=== PATIENT | female | born 2000 | race African-American/Black ===

== ENCOUNTER 2024-04-28 09:23 | Emergency (ER) | payer BC, SELFPAY ==
--- NOTE | ~2024-04-28 | XR_ITS ---
EXAMINATION: XR chest 2V 04/28/2024 09:52 INDICATION: Cough and congestion PROCEDURE: 2 view chest COMPARISON: No prior studies for comparison. FINDINGS: The lungs are clear. The cardiomediastinal silhouette is within normal limits. There are no pleural effusions. There is no pneumothorax suspected. IMPRESSION: 1: NO ACUTE CARDIOPULMONARY DISEASE. Reviewed, dictated and finalized at location A. TO BUCKER
[2024-04-28 09:24] VITALS: BP 132/77; PULSE 92; RESP 20; TEMP 36.9; O2SAT 100
[2024-04-28 10:32] VITALS: BP 118/73; PULSE 78; RESP 18; O2SAT 99
--- NOTE | 2024-04-28 10:39 | ED.URI ---
HPI - URI/Sore Throat General Chief Complaint: Upper Respiratory Infection Stated Complaint: COUGH,CONGESTION,HEMOPTYSIS Time Seen by Provider: 04/28/24 09:56 Source: patient Mode of arrival: ambulatory Limitations: no limitations History of Present Illness HPI Narrative: Patient is a 24-year-old female who presents the ED with report of URI symptoms. Patient reports she has had URI sx's since Friday with cough, congestion, sore throat. Has been bring up some phlegm with the cough. States today she woke up and had some blood streaks in her sputum and nasal drainage which prompted her presentation. Denies fevers. Denies significant SOB. 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 Related Data Allergies Allergy/AdvReac Type Severity Reaction Status Date / Time No Known Allergies Allergy Verified 04/28/24 09:24 Review of Systems Review of Systems: All systems reviewed & are unremarkable except as noted in HPI. All systems reviewed & are unremarkable except as noted in HPI and below Exam Narrative: GENERAL: Well appearing, obese with BMI of 32.2, non-toxic, in no acute distress. HEAD: Normocephalic, atraumatic. ENT: Mild posterior pharynx erythema. No tonsillar hypertrophy or exudate. Uvula midline. Nasal mucosa does appear dry. No active bleeding. No septal hematoma. RESPIRATORY: Airway patent, respirations nonlabored. Clear to auscultation bilaterally, no rales, rhonchi, wheezing. Frequent coughing on exam. Nasal quality to voice. No focal lung sounds heard with auscultation. CARDIOVASCULAR: Regular rate and rhythm without murmurs, rubs, or gallops. MUSCULOSKELETAL: Moves all extremities. No gross deformities. SKIN: Warm, dry, normal color. NEURO: A&O X3. Speech clear. PSYCHIATRIC: Appropriate mood and affect. Normal interaction. Course Vital Signs Vital signs: Vital Signs Temperature 98.4 F 04/28/24 09:24 Pulse Rate 92 04/28/24 09:24 Respiratory Rate 20 04/28/24 09:24 Blood Pressure 132/77 04/28/24 09:24 Pulse Oximetry 100 04/28/24 09:24 Oxygen Delivery Room Air 04/28/24 09:24 Temperature 98.4 F 04/28/24 09:24 Pulse Rate 80 04/28/24 12:05 Respiratory Rate 16 04/28/24 12:05 Blood Pressure 128/67 04/28/24 12:05 Pulse Oximetry 99 04/28/24 12:05 Oxygen Delivery Room Air 04/28/24 10:26 MDM - URI/Sore Throat MDM Narrative Medical decision making narrative: Patient presented to ED with several day history of URI symptoms. Vital signs are stable upon arrival. Patient is in no acute distress. Chest x-ray is clear. Testing for influenza, RSV, COVID negative. Strep testing also negative. Discussed high likelihood of viral URI, management of such. Discussed humidifier, Aquaphor/Vaseline to nasal cavities to prevent drying out. Discussed further management of symptom relief at home. Will prescribe Tessalon Perles. Given return precautions. She agrees with plan. Discharged in stable condition. Medical Records Attestation: I reviewed the patient's medical records. Lab Data Attestation: I reviewed the patient's lab results. Labs: Lab Results 04/28/24 04/28/24 Range/Units 10:07 11:04 Influenza A (RT-PCR) Negative (Negative) Influenza B (RT-PCR) Negative (Negative) RSV (RT-PCR) Negative (Negative) SARS-CoV-2 RNA (RT-PCR) Negative (Negative) Group A Strep (PCR) Not detected (Negative) Imaging Data Attestation: I personally reviewed and interpreted this imaging study as follows: Radiologist's impression: ITS Impressions Chest X-Ray 04/28/24 09:53 IMPRESSION: 1: NO ACUTE CARDIOPULMONARY DISEASE. Discharge Plan Discharge Clinical Impression: Acute viral syndrome Upper respiratory infection Qualifiers: URI type: unspecified URI Qualified Code(s): J06.9 - Acute upper respiratory infection, unspecified Patient Disposition: Home, Self-Care Condition: Stable Instructions: Antibiotic Form, Viral Syndrome (ED), Cold Symptoms (ED), Acute Cough (ED) Additional Instructions: Your testing for influenza, RSV, COVID, strep were negative. You likely have a viral upper respiratory infection that will resolve on its own. Recommend using humidifier at night to prevent nose from drying out. You can apply aquaphor or vaseline to nose at night, as well. Continue nasal sprays. Stay well-hydrated at home. Recommend electrolyte rich fluids, Gatorade, Pedialyte, body armor. Utilize Tessalon Perles as needed for cough. Utilize Tylenol and Ibuprofen for discomfort and/or fevers. Recommend [id number] cough and cold medicines for symptom relief, Delsym, Mucinex, DayQuil, NyQuil, Sudafed, Robitussin, TheraFlu. Follow with primary care doctor for further evaluation if needed. Return to the ED if you experience severe bleeding, chest pain, difficulty breathing, unable to keep down food or drink, severe pain, or any other symptoms of concern. Patient Language: Scottish Prescriptions: New benzonatate 200 mg capsule 200 mg PO TID PRN (Reason: cough) Qty: 15 0RF Follow-up/Referrals: Alf,Mary Martinez DO [Primary Care Provider] - Time of Disposition: 11:48
[2024-04-28 10:51] LABS: Influenza A QL RT-PCR Negative (Negative); Influenza B QL RT-PCR Negative (Negative); RSV RNA, RT-PCR Negative (Negative); SARS-CoV-2 RNA PCR Negative (Negative)
[2024-04-28 11:37] LABS: Strep Group A RT-PCR NOT DETECTED (Negative)
[2024-04-28 12:05] VITALS: BP 128/67; PULSE 80; RESP 16; O2SAT 99
--- OUTSIDE RECORDS SUMMARY | 2024-04-29 23:06 | XMS_ITS | Referral Summary ---
Author Organization [address] Address [address] [facility] [address] [place] [address] Care Team Providers Care Route Sales Representative Name Role Phone Mary Milner DO Primary Care Provider [phone]- [phone] Encounters Date Type Department Care Team Description 04/22/2024 Telephone [facility] Family Medicine [address] [phone] Saba Reis MA 03/26/2024 Orders Only [facility] [address] [place] [phone] Mary Milner DO Asymptomatic microscopic hematuria (Primary Dx) 03/25/2024 Telephone [facility] [address] [place] [phone] Mary Milner DO 03/24/2024 1:45 PM ZIGZAG APPLIQUER Lab [facility] [address] [place] [address] Need for hepatitis B screening test; Need for hepatitis C screening test; Annual physical exam; Screening for blood or protein in urine; Mild episode of recurrent major depressive disorder (HCC); Generalized anxiety disorder; Screening for thyroid disorder; Encounter for lipid screening for cardiovascular disease; Encounter for screening examination for impaired glucose regulation and diabetes mellitus; Encounter for screening for other digestive system disorders; Screening for deficiency anemia 03/24/2024 1:00 PM ZIGZAG APPLIQUER Office Visit [facility] Family Medicine [facility] [address] [place] [phone] Mary Milner DO Annual physical exam (Primary Dx); Mild episode of recurrent major depressive disorder (HCC); Generalized anxiety disorder; Screening for deficiency anemia; Encounter for screening for other digestive system disorders; Encounter for screening examination for impaired glucose regulation and diabetes mellitus; Encounter for lipid screening for cardiovascular disease; Screening for thyroid disorder; Screening for blood or protein in urine; Need for hepatitis C screening test; Need for hepatitis B screening test from Last 3 Months Allergies No known active allergies Medications sertraline (ZOLOFT) 100 mg tabletIndication s:Anxiety with Depression Take 1 tablet (100 mg total) by mouth daily 90 tablet 1 03/24/2024 Active semaglutide (Wegovy) 0.25 mg/0.5 mL auto-injectorInd ications:Weight Loss Management for Obese Patient (BMI >= 30) Start: 0.25 mg SC qwk x 4 wk, then 0.5 mg SC qwk 2 mL 1 03/25/2024 Active Active Problems Problem Noted Date Diagnosed Date Class 1 obesity due to exces s calories without serious comorbidity with body mass index (BMI) of 32.0 to 32.9 in adult 03/25/2024 Mild episode of recurrent major depressive disor robles 03/24/2024 Assessment & Plan (03/24/2024 1:52 PM ZIGZAG APPLIQUER): Stable. Cont. Current prescription medications. Generalized anxiety disorder 03/24/2024 Assessment & Plan (03/24/2024 1:54 PM ZIGZAG APPLIQUER): Stable. Cont. Current prescription medications. Immunizations Name Administration Dates Next Due Influenza, Quadrivalent, Spl it, Preservative Free, Intramuscular 12/22/2021,01/18/2021,03/03/2019 Influenza, Unspecified 01/06/2024,2022(Deferred: Patient Refused) Meningococcal MCV4P (Menactra) 10/13/2023,2018 Tdap 10/13/2023,06/25/2019 Social History Tobacco Use Types Packs/Day Years Used Date Smoking Tobacco: Never Smokeless Tobacco: Never Tobacco Cessation:Counseling Given: Not Answered AUDIT-C Answer Date Recorded Q1: How often do you have a drink containing alc ohol? Monthly or less 03/24/2024 Q2: How many drinks containi ng alcohol do you have on a typical day when you are drinking? 1 or 2 03/24/2024 Q3: How often do you have si x or more drinks on one occasion? Less than monthly 03/24/2024 PHQ-2 Answer Date Recorded PHQ-2 Total Score (If total score is 3 or more points, staff should administer the PHQ-9) 0 03/24/2024 Comments Unknown Sex and Gender Information Value Date Recorded Sex Assigned at Not on file Legal Sex Female 1:52 PM ZIGZAG APPLIQUER Gender Identity Not on file Sexual Orientation Not on file Last Filed Vital Signs Vital Sign Reading Time Taken Comments Blood Pressure 100/62 03/24/2024 1:10 PM ZIGZAG APPLIQUER Pulse 82 03/24/2024 1:10 PM ZIGZAG APPLIQUER Temperature - - Respiratory Rate 14 03/24/2024 1:10 PM ZIGZAG APPLIQUER Oxygen Saturation 98% 03/24/2024 1:10 PM ZIGZAG APPLIQUER Inhaled Oxygen Concentration - - Weight 85.7 kg (189 lb) 03/24/2024 1:10 PM ZIGZAG APPLIQUER Height 162.6 cm (5' 4 ) 03/24/2024 1:10 PM ZIGZAG APPLIQUER Body Mass Index 32.44 03/24/2024 1:10 PM ZIGZAG APPLIQUER Plan of Treatment Not on file Procedures Procedure Name Priority Date/Time Associated Diagnosis Comments EGFR Routine 03/24/2024 1:56 PM ZIGZAG APPLIQUER Annual physical exam Encounter for screening for other digestive system disorders DIFFERENTIAL AUTO Routine 03/24/2024 1:5 6 PM ZIGZAG APPLIQUER Annual physical exam Screening for deficiency anemia CBC WITH AUTO DIFFERENTIAL Routine 03/24/2024 1:56 PM ZIGZAG APPLIQUER Annual physical exam Screening for deficiency anemia COMPREHENSIVE METABOLIC PANEL Routine 03/24/2024 1:56 PM ZIGZAG APPLIQUER Annual physical exam Encounter for screening for other digestive system disorders HEMOGLOBIN A1C Routine 03/24/2024 1:56 PM ZIGZAG APPLIQUER Annual physical exam Encounter for screening examination for impaired glucose regulation and diabetes mellitus LIPID PANEL Routine 03/24/2024 1:56 PM ZIGZAG APPLIQUER Annual physical exam Encounter for lipid screening for cardiovascular disease THYROID FUNCTION CASCADE Routine 03/24/2024 1:56 PM ZIGZAG APPLIQUER Annual physical exam Mild episode of recurrent major depressive disorder (HCC) Generalized anxiety disorder Screening for thyroid disorder HEPATITIS C ANTIBODY Routine 03/24/2024 1:56 PM ZIGZAG APPLIQUER Need for hepatitis C screening test HEPATITIS B SURFACE ANTIGEN Routine 03/24/2024 1:56 PM ZIGZAG APPLIQUER Need for hepatitis B screening test HEPATITIS B SURFACE ANTIBODY (IMMUNE STATUS) Routine 03/24/2024 1:56 PM ZIGZAG APPLIQUER Need for hepatitis B screening test HEPATITIS B CORE ANTIBODY, TOTAL Routine 03/24/2024 1:56 PM ZIGZAG APPLIQUER Need for hepatitis B screening test URINALYSIS, MICROSCOPIC ONLY Routine 03/24/2024 1:52 PM ZIGZAG APPLIQUER Annual physical exam Screening for blood or protein in urine URINALYSIS AND REFLEX TO MICROSCOPIC AND CULTURE Routine 03/24/2024 1:52 PM ZIGZAG APPLIQUER Annual physical exam Screening for blood or protein in urine from Last 3 Months Results * eGFR (03/24/2024 1:56 PM ZIGZAG APPLIQUER) eGFR >90 >=60 mL/min/1. 73 m2 Comment: Interpretive Data Reference Interval Normal ?>/= 90 mL/min/1.73m2 Mildly decreased* ? 60 - 89 mL/min/1.73m2 Mildly to moderately decreased ?45 - 59 mL/min/1.73m2 Moderately to severely decreased ??30 - 44 mL/min/1.73m2 Severely decreased ?15 - 29 mL/min/1.73m2 Kidney Failure ?< 15 ??mL/min/1.73m2 *Relative to young adult level Estimated glomerular filtration rate is determined by the 2020 CKD-EPI equation recommended by the National Kidney Foundation (A Unifying Approach to GFR Estimation: Recommendations of the NKF-ASK Task Force on Reassessing the Inclusion of Race in Diagnosing Kidney Disease, JASN 2020). The CKD-EPI equation should not be used for patients with unstable renal function and has not been validated in children and those over 70. Current interpretive data was last reviewed 2021. Blood 03/24/2024 1:56 PM ZIGZAG APPLIQUER 03/24/2024 2:11 PM ZIGZAG APPLIQUER us Mary Milner DO LAB BLOOD ORDERABLES Final Result [facility] [address] [facility] Department [place] [address] * Differential, auto (03/24/2024 1:56 PM ZIGZAG APPLIQUER) Neutrophil abs 5.5 1.5 - 6.5 K/cumm Imm gran abs 0.0 0.0 - 0.1 K/cumm [facility] Lymphocyte abs 2.1 0.8 - 3.3 K/cumm [facility] Monocyte abs 0.6 0.2 - 0.8 K/cumm [facility] Eosinophil abs 0.1 0.0 - 0.5 K/cumm [facility] Basophil abs 0.0 0.0 - 0.1 K/cumm [facility] Neutrophil pct 66.5 % [facility] Comment: Interpretive Data Percent cell count reference ranges are not reported, since discordance with absolute values may lead to misinterpretation of CBC data. Current Interpretive Data was last revised on 2017. Imm gran pct 0.2 % [facility] Comment: Interpretive Data Percent cell count reference ranges are not reported, since discordance with absolute values may lead to misinterpretation of CBC data. Current Interpretive Data was last revised on 2017. Lymphocyte pct 25.3 % [facility] Comment: Interpretive Data Percent cell count reference ranges are not reported, since discordance with absolute values may lead to misinterpretation of CBC data. Current Interpretive Data was last revised on 2017. Monocyte pct 6.8 % [facility] Comment: Interpretive Data Percent cell count reference ranges are not reported, since discordance with absolute values may lead to misinterpretation of CBC data. Current Interpretive Data was last revised on 2017. Eosinophil pct 0.8 % [facility] Comment: Interpretive Data Percent cell count reference ranges are not reported, since discordance with absolute values may lead to misinterpretation of CBC data. Current Interpretive Data was last revised on 2017. Basophil pct 0.4 % [facility] Comment: Interpretive Data Percent cell count reference ranges are not reported, since discordance with absolute values may lead to misinterpretation of CBC data. Current Interpretive Data was last revised on 2017. Blood 03/24/2024 1:56 PM ZIGZAG APPLIQUER 03/24/2024 2:11 PM ZIGZAG APPLIQUER Mary Perez [facility] LAB BLOOD ORDERABLES Final Result Performing Organization Address [facility] de Phone Number [address] [employer] [place] [place] [address] * Thyroid Function Peterman (03/24/2024 1:56 PM ZIGZAG APPLIQUER) Pathologist [facility] TSH 1.88 0.30 - 4.20 mcIUnit/mL Blood 03/24/2024 1:56 PM ZIGZAG APPLIQUER 03/24/2024 2:11 PM ZIGZAG APPLIQUER [facility] LAB BLOOD ORDERABLES Final Result Performing Organization Address [facility] Co de Phone Number [address] [employer] [place] [place] [address] * (ABNORMAL) CBC with auto differential (03/24/2024 1:56 PM ZIGZAG APPLIQUER) Pathologist [facility] WBC 8.3 3.8 - 9.9 K/cumm Hgb 11.4(L) 11.9 - 15.5 g/dL [facility] Hct 36.3 35.6 - 45.5 % [facility] Plt 414(H) 150 - 400 K/cumm [facility] MPV 10.0 9.1 - 12.3 fL [facility] RBC 4.33 3.90 - 5.20 M/cumm [facility] MCV 83.8 81.3 - 96.4 fL [facility] MCH 26.3(L) 27.1 - 33.3 pg [facility] MCHC 31.4(L) 32.3 - 35.7 g/dL [facility] RDW CV 14.0 11.1 - 14.9 % [facility] RDW SD 42.7 35.7 - 48.1 fL [facility] NRBC abs 0.00 0.00 - 0.01 K/cumm [facility] Blood 03/24/2024 1:56 PM ZIGZAG APPLIQUER 03/24/2024 2:11 PM ZIGZAG APPLIQUER us Mary Milner DO LAB BLOOD ORDERABLES Final Result Performing Organization Address City/State/[facility] Co de Phone Number [place] [phone] [facility] Department [place] [address] * Hepatitis C antibody Blood (03/24/2024 1:56 PM ZIGZAG APPLIQUER) Hep C Ab Nonreactive Nonreactive Comment: Antibodies to HCV not detected. Does NOT exclude the possibility of recent exposure to HCV. Current interpretive data was last revised on 21 Interpretive Data Nonreactive: Antibodies to HCV not detected. Does NOT exclude the possibility of recent exposure to HCV. Equivocal: Equivocal for HCV antibodies. Supplemental molecular testing will be automatically performed to determine infection status in accordance with current CDC screening recommendations. ?? Reactive: Positive for HCV antibodies. ??This may represent current or past HCV infection. Supplemental molecular testing will be automatically performed to determine ??current infection status in accordance with current CDC screening recommendations. Interpretive data was last revised on 2019. Blood 03/24/2024 1:56 PM ZIGZAG APPLIQUER 03/24/2024 2:11 PM ZIGZAG APPLIQUER us Mary Milner DO LAB MICROBIOLOGY - GENERAL ORDERABLES Final Result Performing Organization Address City/[facility] Co de Phone Number [address] [employer] [place] [address] * Hepatitis B core antibody, total Blood (03/24/2024 1:56 PM ZIGZAG APPLIQUER) Pathologist [facility] Hep B core IgG/IgM Nonreactive Nonreactive Comment:Testing performed by : [facility], [address] [place]., [address] Blood 03/24/2024 1:56 PM ZIGZAG APPLIQUER 03/24/2024 5:54 PM ZIGZAG APPLIQUER Mary Milner LAB MICROBIOLOGY - GENERAL ORDERABLES Final Result Performing Organization Address [facility] de Phone Number [address] [address] * Hepatitis B surface antibody (immune status) Blood (03/24/2024 1:56 PM ZIGZAG APPLIQUER) [facility] HBsAb (immune status) Nonreactive Comment: Interpretive Data Nonreactive: This result is consistent with a lack of immunity to Hepatitis B Virus when used in the setting of routine screening. Equivocal: The immune status of the individual should be further assessed, if appropriate, after consideration of clinical status, risk factors, and additional diagnostic information. Reactive: This result is consistent with immunity to Hepatitis B Virus when used in the setting of routine screening. Current interpretive data was last revised on 19. Blood 03/24/2024 1:56 PM ZIGZAG APPLIQUER 03/24/2024 2:11 PM ZIGZAG APPLIQUER us Mary Milner DO LAB MICROBIOLOGY - GENERAL ORDERABLES Final Result Performing Organization Address [facility] Co de Phone Number [address] [employer] [place] [address] * Hepatitis B Surface Antigen Blood (03/24/2024 1:56 PM ZIGZAG APPLIQUER) Pathologist [facility] HepBsAg Nonreactive Nonreactive Blood 03/24/2024 1:56 PM ZIGZAG APPLIQUER 03/24/2024 2:11 PM ZIGZAG APPLIQUER Mary Milner DO LAB MICROBIOLOGY - GENERAL ORDERABLES Final Result Performing Organization Address [facility] Phone Number [address] [address] * (ABNORMAL) Hemoglobin A1c (03/24/2024 1:56 PM ZIGZAG APPLIQUER) Pathologist [facility] Hgb A1C 5.8(H) 4.0 - 5.6 % Estimated Average Glucose 120 mg/dL [facility] Comment: The ADA recommends reporting an estimated Average Glucose (eAG) with all Hemoglobin A1c results using the equation derived from a study of 507 normal and diabetic adults. ??Minority populations were underrepresented and children were not included. ?? (Diabetes Care 31:4315-4974, 2008). ??The eAG is not equivalent to a fasting glucose. Blood 03/24/2024 1:56 PM ZIGZAG APPLIQUER 03/24/2024 2:11 PM ZIGZAG APPLIQUER Mary Milner DO LAB BLOOD ORDERABLES Final Result Performing Organization Address [facility] de Phone Number [address] [address] * (ABNORMAL) Lipid panel (03/24/2024 1:56 PM ZIGZAG APPLIQUER) [facility] Cholesterol 201(H) 30 - 199 mg/dL Comment: Interpretive Data Ages < or = 19 years ??Acceptable: ? <170 mg/dL ??Borderline high: ??170-199 mg/dL ??High: ? >or= 200 mg/dL Ages > or = 20 years ??Desirable: ?<200 mg/dL ??Borderline high: ??200-239 mg/dL ??High: ? >or= 240 mg/dL Literature References: 1. Expert Panel on Integrated Guidelines for Cardiovascular Health and Risk Reduction in Children and Adolescents. Pediatrics 2011;128:S213 2. NCEP Expert Panel. Circulation 2004;110:227 Current Interpretive Data was last revised on 2017. Triglycerides 159(H) <=149 mg/dL [facility] Comment: Interpretive Data Ages < or = 9 years ??Acceptable: ? <75 mg/dL ??Borderline high: ??75-99 mg/dL ??High: ? >or= 100 mg/dL Ages 10 to 20 years ??Acceptable: ? <90 mg/dL ??Borderline high: ??90-129 mg/dL ??High: ? >or= 130 mg/dL Ages > or = 20 years ??Desirable: ?<150 mg/dL ??Borderline high: ??150-199 mg/dL ??High: ? 200-499 mg/dL ?Very high: ?? >or= 499 mg/dL Literature References: 1. Expert Panel on Integrated Guidelines for Cardiovascular Health and Risk Reduction in Children and Adolescents. Pediatrics 2011;128:S213 2. NCEP Expert Panel. Circulation 2004;110:227 Current Interpretive Data was last revised on 2017. HDL 53 >=40 mg/dL [facility] Comment: Interpretive Data Ages < or = 19 years ??Acceptable: ? >45 mg/dL ??Borderline low: ?? 40-45 mg/dL ??Low: ? <40 mg/dL Ages > or = 20 years ??Desirable: ?>or= 60 mg/dL ??Low: ? <40 mg/dL Literature References: 1. Expert Panel on Integrated Guidelines for Cardiovascular Health and Risk Reduction in Children and Adolescents. Pediatrics 2011;128:S213 2. NCEP Expert Panel. Circulation 2004;110:227 Current Interpretive Data was last revised on 2017. LDL, calculated 120 <=129 mg/dL [facility] Comment: Interpretive Data Ages < or = 19 years ??Acceptable: ? <110 mg/dL ??Borderline high: ??110-129 mg/dL ??High: ?>or= 130 mg/dL Ages > or = 20 years ??Optimal: ? <100 mg/dL ??Near optimal: ?100-129 mg/dL ??Borderline high: ?? 130-159 mg/dL ??High: ?>160 mg/dL Calculated using the Say LDL-C estimating equation. This equation was implemented on 2023. Prior to this date LDL-C was estimated using the Friedewald equation. Literature References: 1. Expert Panel on Integrated Guidelines for Cardiovascular Health and Risk Reduction in Children and Adolescents. Pediatrics 2011;128:S213 2. NCEP Expert Panel. Circulation 2004;110:227 3. Say Dorado et al. ISH Cardiol. 2020 August 05;5(5):540-548. doi: 10.1001/jamacardio.2020.0013 Current Interpretive Data was last revised on 2023. Non-HDL Cholesterol 148 mg/dL [facility] Comment: Interpretive Data Ages < or = 19 years ??Acceptable: ?<120 mg/dL ??Borderline high: ??120-144 mg/dL ??High: ?>145 mg/dL Ages > or = 20 years ??When triglycerides are >200 mg/dL, Non-HDL cholesterol is a secondary target of ? therapy with treatment goals that are 30 mg/dL greater than the LDL cholesterol target. ? Literature References: 1. Expert Panel on Integrated Guidelines for Cardiovascular Health and Risk Reduction in Children and Adolescents. Pediatrics 2011;128:S213 2. NCEP Expert Panel. Circulation 2004;110:227 Current Interpretive Data was last revised on 2017. Chol/HDL ratio 4 [facility] Blood 03/24/2024 1:56 PM ZIGZAG APPLIQUER 03/24/2024 2:11 PM ZIGZAG APPLIQUER us Mary Milner DO LAB BLOOD ORDERABLES Final Result [facility] [address] [facility] Department [place] [address] * (ABNORMAL) Comprehensive metabolic panel (03/24/2024 1:56 PM ZIGZAG APPLIQUER) Sodium 137 135 - 145 mmol/L Potassium, pl 3.8 3.3 - 4.9 mmol/L [facility] Chloride 102 97 - 110 mmol/L [facility] CO2 25 22 - 32 mmol/L [facility] Anion gap 10 2 - 15 mmol/L [facility] BUN 8 6 - 25 mg/dL [facility] Creatinine 0.59(L) 0.60 - 1.10 mg/dL [facility] Glucose 97 70 - 199 mg/dL [facility] Comment: Interpretive Data Fasting glucose >/= 126 mg/dl is diagnostic for diabetes. ?? Fasting is defined as no caloric intake for at least 8 hours. Fasting glucose between 100 mg/dl to 125 mg/dl is diagnostic of prediabetes. In a patient with classic symptoms of hyperglycemia or hyperglycemic crisis, a random glucose >/= 200 mg/dl is diagnostic for diabetes. In the absence of unequivocal hyperglycemia, results should be confirmed by repeat testing. The classification and Diagnosis of Diabetes Diabetes Care 2021; 46: S19-S40. Current interpretive data was last revised 2022. Calcium 9.5 8.5 - 10.3 mg/dL [facility] Bilirubin, total 0.2 0.1 - 1.2 mg/dL [facility] Protein, pl 8.0 6.5 - 8.5 g/dL [facility] Albumin 4.3 3.5 - 5.0 g/dL [facility] Alk phos 84 40 - 130 Units/L [facility] ALT 6(L) 7 - 45 Units/L [facility] AST 16 10 - 45 Units/L [facility] Blood 03/24/2024 1:56 PM ZIGZAG APPLIQUER 03/24/2024 2:11 PM ZIGZAG APPLIQUER us Mary Milner DO LAB BLOOD ORDERABLES Final Result [facility] [address] [facility] Department [place] [address] * (ABNORMAL) Urinalysis reflex to microscopic and culture Urine, clean voided (03/24/2024 1:52 PM ZIGZAG APPLIQUER) Color, ur Yellow Yellow Clarity, ur Clear Clear [facility] Specific gravity, ur 1.020 1.003 - 1.030 [facility] pH, urine 7.0 [facility] Comment: Interpretive Data ? Urine pH is affected by diet, medications, systemic acid-base disturbances, and renal tubular function. ??pH may affect urinary stone formation. ??For example, urine pH below 6.0 may help reduce the tendency for calcium phosphate stones and pH greater than 6.0 may reduce the tendency for uric acid stone formation. Source: [facility] Current Interpretive Data was last revised on 2017 Protein, ur ql Negative Negative [facility] Glucose, ur ql Negative Negative [facility] Ketones, ur Negative Negative [facility] Bilirubin, ur Negative Negative [facility] Blood, ur 1+(A) Negative [facility] Urobilinogen, ur <2.0 <2.0 mg/dL [facility] Nitrite, ur Negative Negative [facility] Leukocyte esterase, ur Negative Negative [facility] UA reflex comment Reflex to microscopic UA will be performed. [facility] Urine, clean voided 03/24/2024 1:52 PM ZIGZAG APPLIQUER 03/24/2024 2:09 PM ZIGZAG APPLIQUER Narrative [facility] - 03/24/2024 2:18 PM ZIGZAG APPLIQUER Urine Collection Method->Clean Catch us Mary Milner DO LAB MICROBIOLOGY - GENERAL ORDERABLES Final Result [facility] [address] [facility] Department [place] [address] * (ABNORMAL) Urinalysis, microscopic only (03/24/2024 1:52 PM ZIGZAG APPLIQUER) WBC, ur 0-5 0 - 5 /HPF RBC, ur 11-20(A) 0 - 2 /HPF [facility] Epithelial cells, squamous, ur 1-5 0 - 5 /HPF [facility] Mucous, ur Present(A) [facility] Culture Reflex Comment Reflex conditions for urine culture (WBC >10) not met. [facility] Urine, clean voided 03/24/2024 1:52 PM ZIGZAG APPLIQUER 03/24/2024 2:12 PM ZIGZAG APPLIQUER us Mary Milner DO LAB URINE ORDERABLES Final Result [facility] [address] [facility] [place] [address] from Last 3 Months Insurance [employer] Care Teams Route Sales Representative Relationship Specialty Start Date End Date Mary Milner DO [address] [facility] [address] [place] [address] PCP - General Family Medicine 03/24/24
--- OUTSIDE RECORDS SUMMARY | 2024-04-29 23:06 | XMS_ITS | Clinical Summary ---
Author Organization [facility] [place] [address] [facility] 5th Floor [address] Care Team Providers Care Scrubbing Machine Operator Name Role Phone Mary Milner Primary Care Provider [phone]- [phone] Allergies No known active allergies Medications sertraline [...] 03/24/2024 Assessment & Plan (03/24/2024 1:52 PM COIN COUNTER AND WRAPPER): Stable. Cont. Current prescription medications. Generalized anxiety disorder 03/24/2024 Assessment & Plan (03/24/2024 1:54 PM COIN COUNTER AND WRAPPER): Stable. Cont. Current prescription medications. Encounters Date Type Department Care Team Description 04/22/2024 Telephone [facility] Family Medicine [address] [place] [address] [place] [phone] Saba Reis MA 03/26/2024 Orders Only [facility] [place] [address] [facility] [address] [place] [address] Mary Milner DO Asymptomatic microscopic hematuria (Primary Dx) 03/25/2024 Telephone [facility] [address] [facility] [address] [place] [address] Mary Milner DO 03/24/2024 1:45 PM COIN COUNTER AND WRAPPER Lab [facility] [address] [place] [address] Need for hepatitis B screening test; Need [...] Screening for deficiency anemia 03/24/2024 1:00 PM COIN COUNTER AND WRAPPER Office Visit [facility] [place] [address] [facility] [address] [place] [address] Mary Milner DO Annual physical exam (Primary [...] B screening test from Last 3 Months Immunizations Name Administration Dates Next Due Influenza, Quadrivalent, Spl it, Preservative Free, Intramuscular 12/22/2021,01/18/2021,03/03/2019 Influenza, Unspecified 01/06/2024,2022(Deferred: Patient Refused) Meningococcal MCV4P (Menactra) 10/13/2023,2018 Tdap 10/13/2023,06/25/2019 Family History Medical History Relation Name Comments Hypertension Father Relation Name Status Comments Father Alive Mother Alive Social History Tobacco Use Types Packs/Day Years [...] on file Legal Sex Female 1:52 PM COIN COUNTER AND WRAPPER Gender Identity Not on file Sexual Orientation Not on file Obstetrics History Last Filed Vital Signs Vital Sign Reading Time Taken Comments Blood Pressure 100/62 03/24/2024 1:10 PM COIN COUNTER AND WRAPPER Pulse 82 03/24/2024 1:10 PM COIN COUNTER AND WRAPPER Temperature - - Respiratory Rate 14 03/24/2024 1:10 PM COIN COUNTER AND WRAPPER Oxygen Saturation 98% 03/24/2024 1:10 PM COIN COUNTER AND WRAPPER Inhaled Oxygen Concentration - - Weight 85.7 kg (189 lb) 03/24/2024 1:10 PM COIN COUNTER AND WRAPPER Height 162.6 cm (5' 4 ) 03/24/2024 1:10 PM COIN COUNTER AND WRAPPER Body Mass Index 32.44 03/24/2024 1:10 PM COIN COUNTER AND WRAPPER Plan of Treatment Health Maintenance Due Date Last Done Comments Cervical Cancer Screening 2002 Covid-19 Vaccine ( season) 2025 12/22/2021, 08/15/2020, 07/25/2020 Postponed from 12/07/2023 (Patient declined, but will receive in the future) Depression Screening 03/24/2025 03/24/2024 Regular Well Visit/Exam 18-64 03/24/2025 03/24/2024 DTaP/Tdap/Td Vaccine (3 - Td or Tdap) 10/12/2033 10/13/2023, 06/25/2019 Influenza Vaccine Completed 01/06/2024, , 01/18/2021, Additional history exists Hepatitis B Screening Completed 03/24/2024 Hepatitis C Screening Completed 03/24/2024 HPV Vaccines Discontinued Meningococcal B Vaccine Discontinued Pneumococcal vaccine <65 Aged Out No longer eligible based on patient's age to complete this topic Varicella Vaccines Discontinued Procedures Procedure Name Priority Date/Time Associated Diagnosis Comments EGFR Routine 03/24/2024 1:56 PM COIN COUNTER AND WRAPPER Annual physical exam Encounter for screening for other digestive system disorders DIFFERENTIAL AUTO Routine 03/24/2024 1:5 6 PM COIN COUNTER AND WRAPPER Annual physical exam Screening for deficiency anemia CBC WITH AUTO DIFFERENTIAL Routine 03/24/2024 1:56 PM COIN COUNTER AND WRAPPER Annual physical exam Screening for deficiency anemia COMPREHENSIVE METABOLIC PANEL Routine 03/24/2024 1:56 PM COIN COUNTER AND WRAPPER Annual physical exam Encounter for screening for other digestive system disorders HEMOGLOBIN A1C Routine 03/24/2024 1:56 PM COIN COUNTER AND WRAPPER Annual physical exam Encounter for screening examination for impaired glucose regulation and diabetes mellitus LIPID PANEL Routine 03/24/2024 1:56 PM COIN COUNTER AND WRAPPER Annual physical exam Encounter for lipid screening for cardiovascular disease THYROID FUNCTION CASCADE Routine 03/24/2024 1:56 PM COIN COUNTER AND WRAPPER Annual physical exam Mild episode of recurrent major depressive disorder (HCC) Generalized anxiety disorder Screening for thyroid disorder HEPATITIS C ANTIBODY Routine 03/24/2024 1:56 PM COIN COUNTER AND WRAPPER Need for hepatitis C screening test HEPATITIS B SURFACE ANTIGEN Routine 03/24/2024 1:56 PM COIN COUNTER AND WRAPPER Need for hepatitis B screening test HEPATITIS B SURFACE ANTIBODY (IMMUNE STATUS) Routine 03/24/2024 1:56 PM COIN COUNTER AND WRAPPER Need for hepatitis B screening test HEPATITIS B CORE ANTIBODY, TOTAL Routine 03/24/2024 1:56 PM COIN COUNTER AND WRAPPER Need for hepatitis B screening test URINALYSIS, MICROSCOPIC ONLY Routine 03/24/2024 1:52 PM COIN COUNTER AND WRAPPER Annual physical exam Screening for blood or protein in urine URINALYSIS AND REFLEX TO MICROSCOPIC AND CULTURE Routine 03/24/2024 1:52 PM COIN COUNTER AND WRAPPER Annual physical exam Screening for blood or protein in urine from Last 3 Months Results * eGFR (03/24/2024 1:56 PM COIN COUNTER AND WRAPPER) [facility] eGFR >90 >=60 mL/min/1. 73 m2 Comment: [...] of Race in Diagnosing Kidney Disease, JASN 202). The CKD-EPI equation should not be used for patients with unstable renal function and has not been validated in children and those over 70. Current interpretive data was last reviewed 2021. Blood 03/24/2024 1:56 PM COIN COUNTER AND WRAPPER 03/24/2024 2:11 PM COIN COUNTER AND WRAPPER us Mary Milner DO LAB BLOOD ORDERABLES Final Result [id number] [address] [facility] Department of Laboratories [place], [place] [id number] * Differential, auto (03/24/2024 1:56 PM COIN COUNTER AND WRAPPER) Neutrophil abs 5.5 1.5 - 6.5 K/cumm Imm gran abs 0.0 0.0 - 0.1 K/cumm [facility] Lymphocyte abs 2.1 0.8 - 3.3 K/cumm [facility] Monocyte abs 0.6 0.2 - 0.8 K/cumm [facility] Eosinophil abs 0.1 0.0 - 0.5 K/cumm [facility] Basophil abs 0.0 0.0 - 0.1 K/cumm [facility] Neutrophil pct 66.5 % [facility] Comment: Interpretive Data Percent cell count reference ranges are not reported, since discordance with absolute values may lead to misinterpretation of CBC data. Current Interpretive Data was last revised on 2017. Imm gran pct 0.2 % [facility] Comment: Interpretive Data Percent cell count reference ranges are not reported, since discordance with absolute values may lead to misinterpretation of CBC data. Current Interpretive Data was last revised on 2017. Lymphocyte pct 25.3 % [facility] Comment: Interpretive Data Percent cell count reference ranges are not reported, since discordance with absolute values may lead to misinterpretation of CBC data. Current Interpretive Data was last revised on 2017. Monocyte pct 6.8 % [facility] Comment: Interpretive Data Percent cell count reference ranges are not reported, since discordance with absolute values may lead to misinterpretation of CBC data. Current Interpretive Data was last revised on 2017. Eosinophil pct 0.8 % [facility] Comment: Interpretive Data Percent cell count reference ranges are not reported, since discordance with absolute values may lead to misinterpretation of CBC data. Current Interpretive Data was last revised on 2017. Basophil pct 0.4 % [facility] Comment: Interpretive Data Percent cell count reference ranges are not reported, since discordance with absolute values may lead to misinterpretation of CBC data. Current Interpretive Data was last revised on 2017. Blood 03/24/2024 1:56 PM COIN COUNTER AND WRAPPER 03/24/2024 2:11 PM COIN COUNTER AND WRAPPER us Mary Milner DO LAB BLOOD ORDERABLES Final Result [address] [place] [address] * Thyroid Function [place] (03/24/2024 1:56 PM COIN COUNTER AND WRAPPER) [facility] TSH 1.88 0.30 - 4.20 mcIUnit/mL Blood 03/24/2024 1:56 PM COIN COUNTER AND WRAPPER 03/24/2024 2:11 PM COIN COUNTER AND WRAPPER us Mary Milner DO LAB BLOOD ORDERABLES Final Result Performing Organization Address [facility] de Phone Number [address] [place] [employer] [place] [address] * (ABNORMAL) CBC with auto differential (03/24/2024 1:56 PM COIN COUNTER AND WRAPPER) [facility] WBC 8.3 3.8 - 9.9 K/cumm Hgb 11.4(L) 11.9 - 15.5 g/dL [facility] Hct 36.3 35.6 - 45.5 % [facility] Plt 414(H) 150 - 400 K/cumm [facility] MPV 10.0 9.1 - 12.3 fL [facility] RBC 4.33 3.90 - 5.20 M/cumm [facility] MCV 83.8 81.3 - 96.4 fL [facility] MCH 26.3(L) 27.1 - 33.3 pg [facility] MCHC 31.4(L) 32.3 - 35.7 g/dL [facility] RDW CV 14.0 11.1 - 14.9 % [facility] RDW SD 42.7 35.7 - 48.1 fL [facility] NRBC abs 0.00 0.00 - 0.01 K/cumm [facility] Blood 03/24/2024 1:56 PM COIN COUNTER AND WRAPPER 03/24/2024 2:11 PM COIN COUNTER AND WRAPPER us Mary Milner DO LAB BLOOD ORDERABLES Final Result Performing Organization Address [facility] Co de Phone Number [address] [place] [employer] [place] [address] * Hepatitis C antibody Blood (03/24/2024 1:56 PM COIN COUNTER AND WRAPPER) Pathologist [facility] Hep C Ab Nonreactive Nonreactive Comment: Antibodies [...] revised on 2019. Blood 03/24/2024 1:56 PM COIN COUNTER AND WRAPPER 03/24/2024 2:11 PM COIN COUNTER AND WRAPPER Mary Milner DO LAB MICROBIOLOGY - GENERAL ORDERABLES Final Result Performing Organization Address City/[facility] Co de Phone Number [place] [id number] [facility] [employer] [place] [address] * Hepatitis B core antibody, total Blood (03/24/2024 1:56 PM COIN COUNTER AND WRAPPER) [facility] Hep B core IgG/IgM Nonreactive Nonreactive Comment:Testing performed by : [facility], [address] [place] [address] Blood 03/24/2024 1:56 PM COIN COUNTER AND WRAPPER 03/24/2024 5:54 PM COIN COUNTER AND WRAPPER Mary Milner DO LAB MICROBIOLOGY - GENERAL ORDERABLES Final Result [place] [id number] [facility] [employer] [place] [address] * Hepatitis B surface antibody (immune status) Blood (03/24/2024 1:56 PM COIN COUNTER AND WRAPPER) [facility] HBsAb (immune status) Nonreactive Comment: Interpretive [...] revised on 19. Blood 03/24/2024 1:56 PM COIN COUNTER AND WRAPPER 03/24/2024 2:11 PM COIN COUNTER AND WRAPPER Mary Milner DO LAB MICROBIOLOGY - GENERAL ORDERABLES Final Result Performing Organization Address [facility] Co de Phone Number [address] [address] * Hepatitis B Surface Antigen Blood (03/24/2024 1:56 PM COIN COUNTER AND WRAPPER) Pathologist [facility] HepBsAg Nonreactive Nonreactive Blood 03/24/2024 1:56 PM COIN COUNTER AND WRAPPER 03/24/2024 2:11 PM COIN COUNTER AND WRAPPER Mary Milner DO LAB MICROBIOLOGY - GENERAL ORDERABLES Final Result Performing Organization Address [facility] de Phone Number [address] [address] * (ABNORMAL) Hemoglobin A1c (03/24/2024 1:56 PM COIN COUNTER AND WRAPPER) Pathologist [facility] Hgb A1C 5.8(H) 4.0 - 5.6 % Estimated Average Glucose 120 mg/dL [facility] Comment: The ADA recommends reporting an estimated Average Glucose (eAG) with all Hemoglobin A1c results using the equation derived from a study of 507 normal and diabetic adults. ??Minority populations were underrepresented and children were not included. ?? (Diabetes Care 31:5972-9902, 2008). ??The eAG is not equivalent to a fasting glucose. Blood 03/24/2024 1:56 PM COIN COUNTER AND WRAPPER 03/24/2024 2:11 PM COIN COUNTER AND WRAPPER us Mary Milner DO LAB BLOOD ORDERABLES Final Result [facility] [address] [facility] Department [place] [address] * (ABNORMAL) Lipid panel (03/24/2024 1:56 PM COIN COUNTER AND WRAPPER) Cholesterol 201(H) 30 - 199 mg/dL Comment: [...] on 2017. Triglycerides 159(H) <=149 mg/dL [facility] Comment: Interpretive Data Ages [...] NCEP Expert Panel. Circulation 2004;110:227 3. Say Zhou al. ISH Cardiol. 2020 August 05;5(5):540-548. doi: 10.1001/jamacardio.2020.0013 Current Interpretive Data was last revised on 2023. Non-HDL Cholesterol 148 mg/dL [facility] Comment: Interpretive Data Ages < [...] last revised on 2017. Chol/HDL ratio 4 [facility] Blood 03/24/2024 1:56 PM COIN COUNTER AND WRAPPER 03/24/2024 2:11 PM COIN COUNTER AND WRAPPER us Mary Milner DO LAB BLOOD ORDERABLES Final Result [facility] [address] [facility] Department of Laboratories [place], [place] [id number] * (ABNORMAL) Comprehensive metabolic panel (03/24/2024 1:56 PM COIN COUNTER AND WRAPPER) Sodium 137 135 - 145 mmol/L Potassium, pl 3.8 3.3 - 4.9 mmol/L [facility] Chloride 102 97 - 110 mmol/L [facility] CO2 25 22 - 32 mmol/L [facility] Anion gap 10 2 - 15 mmol/L [facility] BUN 8 6 - 25 mg/dL [facility] Creatinine 0.59(L) 0.60 - 1.10 mg/dL [facility] Glucose 97 70 - 199 mg/dL [facility] Comment: Interpretive Data Fasting glucose >/= 126 [...] classification and Diagnosis of Diabetes Diabetes Care 202; 46: S19-S40. Current interpretive data was last revised 2022. Calcium 9.5 8.5 - 10.3 mg/dL [facility] Bilirubin, total 0.2 0.1 - 1.2 mg/dL [facility] Protein, pl 8.0 6.5 - 8.5 g/dL [facility] Albumin 4.3 3.5 - 5.0 g/dL [facility] Alk phos 84 40 - 130 Units/L [facility] ALT 6(L) 7 - 45 Units/L [facility] AST 16 10 - 45 Units/L [facility] Blood 03/24/2024 1:56 PM COIN COUNTER AND WRAPPER 03/24/2024 2:11 PM COIN COUNTER AND WRAPPER us Mary Milner DO LAB BLOOD ORDERABLES Final Result [facility] [address] [facility] Department [place] [address] * (ABNORMAL) Urinalysis reflex to microscopic and culture Urine, clean voided (03/24/2024 1:52 PM COIN COUNTER AND WRAPPER) Color, ur Yellow Yellow Clarity, ur Clear Clear [facility] Specific gravity, ur 1.020 1.003 - 1.030 [facility] pH, urine 7.0 [facility] Comment: Interpretive Data ? Urine pH is affected by diet, medications, systemic acid-base disturbances, and renal tubular function. ??pH may affect urinary stone formation. ??For example, urine pH below 6.0 may help reduce the tendency for calcium phosphate stones and pH greater than 6.0 may reduce the tendency for uric acid stone formation. Source: [facility] Current Interpretive Data was last revised on 2017 Protein, ur ql Negative Negative [facility] Glucose, ur ql Negative Negative [facility] Ketones, ur Negative Negative [facility] Bilirubin, ur Negative Negative [facility] Blood, ur 1+(A) Negative [facility] Urobilinogen, ur <2.0 <2.0 mg/dL [facility] Nitrite, ur Negative Negative [facility] Leukocyte esterase, ur Negative Negative [facility] UA reflex comment Reflex to microscopic UA will be performed. [facility] Urine, clean voided 03/24/2024 1:52 PM COIN COUNTER AND WRAPPER 03/24/2024 2:09 PM COIN COUNTER AND WRAPPER Narrative [facility] - 03/24/2024 2:18 PM COIN COUNTER AND WRAPPER Urine Collection Method->Clean Catch Mary Milner DO LAB MICROBIOLOGY - GENERAL ORDERABLES Final Result Performing Organization Address City/[facility]/ZIP Co de Phone Number [facility] [place] [employer] [place] [address] * (ABNORMAL) Urinalysis, microscopic only (03/24/2024 1:52 PM COIN COUNTER AND WRAPPER) WBC, ur 0-5 0 - 5 /HPF RBC, ur 11-20(A) 0 - 2 /HPF [facility] Epithelial cells, squamous, ur 1-5 0 - 5 /HPF [facility] Mucous, ur Present(A) [facility] Culture Reflex Comment Reflex conditions for urine culture (WBC >10) not met. [facility] Urine, clean voided 03/24/2024 1:52 PM COIN COUNTER AND WRAPPER 03/24/2024 2:12 PM COIN COUNTER AND WRAPPER Mary Milner DO LAB URINE ORDERABLES Final Result Performing Organization Address [facility] Co de Phone Number [facility] [place] [address] from Last 3 Months Insurance [employer] Care Teams Scrubbing Machine Operator Relationship Specialty Start Date End Date Mary Milner DO [address] [place] [address] PCP - General Family Medicine 03/24/24
== END 2024-04-28 12:07 | disposition home or self-care (01) ==
PROVIDERS: Emergency Provider Physician Assistant; PCP Family Medicine
DX: B34.9 Viral infection, unspecified (principal); J06.9 Acute upper respiratory infection, unspecified; Z20.822 Contact with and (suspected) exposure to COVID-19
CPT/HCPCS: 71046; 87637; 87651; 99283

== ENCOUNTER 2024-05-15 02:07 | Emergency (ER) | payer BC, SELFPAY ==
--- OUTSIDE RECORDS SUMMARY | 2024-05-15 02:09 | XMS_ITS | Clinical Summary ---
Author Organization [facility] [address] Address [address] [facility] 5th [place] [address] Care Team Providers Care Blood Tester Name Role Phone Mary Milner Primary Care Provider [phone]- [phone] Allergies No known active allergies Medications sertraline [...] 03/24/2024 Assessment & Plan (03/24/2024 1:52 PM TRAFFIC ENGINEERING TECHNICIAN): Stable. Cont. Current prescription medications. Generalized anxiety disorder 03/24/2024 Assessment & Plan (03/24/2024 1:54 PM TRAFFIC ENGINEERING TECHNICIAN): Stable. Cont. Current prescription medications. Encounters Date Type Department Care Team Description 04/22/2024 Telephone [facility] Family Medicine [address] [place] [address] [place] [phone] Saba Reis MA 03/26/2024 Orders Only [facility] at [place] [address] [facility] [address] [place] [address] Mary Milner DO Asymptomatic microscopic hematuria (Primary Dx) 03/25/2024 Telephone [facility] [address] [facility] [address] [place] [address] Mary Milner DO 03/24/2024 1:45 PM TRAFFIC ENGINEERING TECHNICIAN Lab [facility] [address] [place] [address] Need for hepatitis B screening test; Need [...] Screening for deficiency anemia 03/24/2024 1:00 PM TRAFFIC ENGINEERING TECHNICIAN Office Visit [facility] [place] [address] [facility] [address] [place] [address] Mary Milner DO Annual physical exam (Primary [...] on file Legal Sex Female 1:52 PM TRAFFIC ENGINEERING TECHNICIAN Gender Identity Not on file Sexual Orientation Not on file Obstetrics History Last Filed Vital Signs Vital Sign Reading Time Taken Comments Blood Pressure 100/62 03/24/2024 1:10 PM TRAFFIC ENGINEERING TECHNICIAN Pulse 82 03/24/2024 1:10 PM TRAFFIC ENGINEERING TECHNICIAN Temperature - - Respiratory Rate 14 03/24/2024 1:10 PM TRAFFIC ENGINEERING TECHNICIAN Oxygen Saturation 98% 03/24/2024 1:10 PM TRAFFIC ENGINEERING TECHNICIAN Inhaled Oxygen Concentration - - Weight 85.7 kg (189 lb) 03/24/2024 1:10 PM TRAFFIC ENGINEERING TECHNICIAN Height 162.6 cm (5' 4 ) 03/24/2024 1:10 PM TRAFFIC ENGINEERING TECHNICIAN Body Mass Index 32.44 03/24/2024 1:10 PM TRAFFIC ENGINEERING TECHNICIAN Plan of Treatment Health Maintenance Due Date [...] Diagnosis Comments EGFR Routine 03/24/2024 1:56 PM TRAFFIC ENGINEERING TECHNICIAN Annual physical exam Encounter for screening for other digestive system disorders DIFFERENTIAL AUTO Routine 03/24/2024 1:5 6 PM TRAFFIC ENGINEERING TECHNICIAN Annual physical exam Screening for deficiency anemia CBC WITH AUTO DIFFERENTIAL Routine 03/24/2024 1:56 PM TRAFFIC ENGINEERING TECHNICIAN Annual physical exam Screening for deficiency anemia COMPREHENSIVE METABOLIC PANEL Routine 03/24/2024 1:56 PM TRAFFIC ENGINEERING TECHNICIAN Annual physical exam Encounter for screening for other digestive system disorders HEMOGLOBIN A1C Routine 03/24/2024 1:56 PM TRAFFIC ENGINEERING TECHNICIAN Annual physical exam Encounter for screening examination for impaired glucose regulation and diabetes mellitus LIPID PANEL Routine 03/24/2024 1:56 PM TRAFFIC ENGINEERING TECHNICIAN Annual physical exam Encounter for lipid screening for cardiovascular disease THYROID FUNCTION CASCADE Routine 03/24/2024 1:56 PM TRAFFIC ENGINEERING TECHNICIAN Annual physical exam Mild episode of recurrent major depressive disorder (HCC) Generalized anxiety disorder Screening for thyroid disorder HEPATITIS C ANTIBODY Routine 03/24/2024 1:56 PM TRAFFIC ENGINEERING TECHNICIAN Need for hepatitis C screening test HEPATITIS B SURFACE ANTIGEN Routine 03/24/2024 1:56 PM TRAFFIC ENGINEERING TECHNICIAN Need for hepatitis B screening test HEPATITIS B SURFACE ANTIBODY (IMMUNE STATUS) Routine 03/24/2024 1:56 PM TRAFFIC ENGINEERING TECHNICIAN Need for hepatitis B screening test HEPATITIS B CORE ANTIBODY, TOTAL Routine 03/24/2024 1:56 PM TRAFFIC ENGINEERING TECHNICIAN Need for hepatitis B screening test URINALYSIS, MICROSCOPIC ONLY Routine 03/24/2024 1:52 PM TRAFFIC ENGINEERING TECHNICIAN Annual physical exam Screening for blood or protein in urine URINALYSIS AND REFLEX TO MICROSCOPIC AND CULTURE Routine 03/24/2024 1:52 PM TRAFFIC ENGINEERING TECHNICIAN Annual physical exam Screening for blood or protein in urine from Last 3 Months Results * eGFR (03/24/2024 1:56 PM TRAFFIC ENGINEERING TECHNICIAN) eGFR >90 >=60 mL/min/1. 73 m2 Comment: Interpretive Data Reference Interval Normal >/= 90 mL/min/1.73m2 Mildly decreased* 60 - 89 mL/min/1.73m2 Mildly to moderately decreased 45 - 59 mL/min/1.73m2 Moderately to severely decreased 30 - 44 mL/min/1.73m2 Severely decreased 15 - 29 mL/min/1.73m2 Kidney Failure < 15 mL/min/1.73m2 *Relative to young adult level Estimated glomerular [...] last reviewed 2021. Blood 03/24/2024 1:56 PM TRAFFIC ENGINEERING TECHNICIAN 03/24/2024 2:11 PM TRAFFIC ENGINEERING TECHNICIAN us Mary Milner DO LAB BLOOD ORDERABLES Final Result [facility] [address] [facility] Department [place] [address] * Differential, auto (03/24/2024 1:56 PM TRAFFIC ENGINEERING TECHNICIAN) Pathologist [facility] Neutrophil abs 5.5 1.5 - 6.5 K/cumm Imm gran abs 0.0 0.0 - 0.1 K/cumm [facility] Lymphocyte abs 2.1 0.8 - 3.3 K/cumm [facility] Monocyte abs 0.6 0.2 - 0.8 K/cumm [facility] Eosinophil abs 0.1 0.0 - 0.5 K/cumm [facility] Basophil abs 0.0 0.0 - 0.1 K/cumm [facility] Neutrophil pct 66.5 % [facility] Comment: Interpretive Data Percent cell count reference ranges are not reported, since discordance with absolute values may lead to misinterpretation of CBC data. Current Interpretive Data was last revised on 2017. Imm gran pct 0.2 % [facility] Comment: Interpretive Data Percent cell count reference ranges are not reported, since discordance with absolute values may lead to misinterpretation of CBC data. Current Interpretive Data was last revised on 2017. Lymphocyte pct 25.3 % [facility] Comment: Interpretive Data Percent cell count reference ranges are not reported, since discordance with absolute values may lead to misinterpretation of CBC data. Current Interpretive Data was last revised on 2017. Monocyte pct 6.8 % [facility] Comment: Interpretive Data Percent cell count reference ranges are not reported, since discordance with absolute values may lead to misinterpretation of CBC data. Current Interpretive Data was last revised on 2017. Eosinophil pct 0.8 % [facility] Comment: Interpretive Data Percent cell count reference ranges are not reported, since discordance with absolute values may lead to misinterpretation of CBC data. Current Interpretive Data was last revised on 2017. Basophil pct 0.4 % [facility] Comment: Interpretive Data Percent cell count reference ranges are not reported, since discordance with absolute values may lead to misinterpretation of CBC data. Current Interpretive Data was last revised on 2017. Blood 03/24/2024 1:56 PM TRAFFIC ENGINEERING TECHNICIAN 03/24/2024 2:11 PM TRAFFIC ENGINEERING TECHNICIAN us Mary Milner DO LAB BLOOD ORDERABLES Final Result [facility] [address] [facility] Department [place] [address] * Thyroid Function [place] (03/24/2024 1:56 PM TRAFFIC ENGINEERING TECHNICIAN) TSH 1.88 0.30 - 4.20 mcIUnit/mL Blood 03/24/2024 1:56 PM TRAFFIC ENGINEERING TECHNICIAN 03/24/2024 2:11 PM TRAFFIC ENGINEERING TECHNICIAN Mary Milner DO LAB BLOOD ORDERABLES Final Result Performing Organization Address [facility] de Phone Number [facility] [address] [place] [address] * (ABNORMAL) CBC with auto differential (03/24/2024 1:56 PM TRAFFIC ENGINEERING TECHNICIAN) [facility] WBC 8.3 3.8 - 9.9 K/cumm Hgb 11.4(L) 11.9 - 15.5 g/dL [facility] Hct 36.3 35.6 - 45.5 % [facility] Plt 414(H) 150 - 400 K/cumm [facility] MPV 10.0 9.1 - 12.3 fL [facility] RBC 4.33 3.90 - 5.20 M/cumm [facility] MCV 83.8 81.3 - 96.4 fL [facility] MCH 26.3(L) 27.1 - 33.3 pg [facility] MCHC 31.4(L) 32.3 - 35.7 g/dL [facility] RDW CV 14.0 11.1 - 14.9 % [facility] RDW SD 42.7 35.7 - 48.1 fL [facility] NRBC abs 0.00 0.00 - 0.01 K/cumm [facility] Blood 03/24/2024 1:56 PM TRAFFIC ENGINEERING TECHNICIAN 03/24/2024 2:11 PM TRAFFIC ENGINEERING TECHNICIAN Mary Milner DO LAB BLOOD ORDERABLES Final Result Performing Organization Address [facility] Co de Phone Number [facility] [address] [place] [address] * Hepatitis C antibody Blood (03/24/2024 1:56 PM TRAFFIC ENGINEERING TECHNICIAN) [facility] Hep C Ab Nonreactive Nonreactive Comment: [...] in accordance with current CDC screening recommendations. Reactive: Positive for HCV antibodies. This may represent current or past HCV infection. Supplemental molecular testing will be automatically performed to determine current infection status in accordance with current CDC screening recommendations. Interpretive data was last revised on 2019. Blood 03/24/2024 1:56 PM TRAFFIC ENGINEERING TECHNICIAN 03/24/2024 2:11 PM TRAFFIC ENGINEERING TECHNICIAN Mary Milner DO LAB MICROBIOLOGY - GENERAL ORDERABLES Final Result Performing Organization Address City/[facility]/ZIP Co de Phone Number [address] [place] [address] * Hepatitis B core antibody, total Blood (03/24/2024 1:56 PM TRAFFIC ENGINEERING TECHNICIAN) Hep B core IgG/IgM Nonreactive Nonreactive Comment:Testing performed by : [facility], [address] [place]., [address] Blood 03/24/2024 1:56 PM TRAFFIC ENGINEERING TECHNICIAN 03/24/2024 5:54 PM TRAFFIC ENGINEERING TECHNICIAN Mary Milner LAB MICROBIOLOGY - GENERAL ORDERABLES Final Result Performing Organization Address City/[facility] Co de Phone Number [address] [place] [address] * Hepatitis B surface antibody (immune status) Blood (03/24/2024 1:56 PM TRAFFIC ENGINEERING TECHNICIAN) HBsAb (immune status) Nonreactive Comment: Interpretive Data [...] revised on 19. Blood 03/24/2024 1:56 PM TRAFFIC ENGINEERING TECHNICIAN 03/24/2024 2:11 PM TRAFFIC ENGINEERING TECHNICIAN Mary Milner DO LAB MICROBIOLOGY - GENERAL ORDERABLES Final Result Performing Organization Address [facility] Co de Phone Number [facility] [address] [address] * Hepatitis B Surface Antigen Blood (03/24/2024 1:56 PM TRAFFIC ENGINEERING TECHNICIAN) Pathologist [facility] HepBsAg Nonreactive Nonreactive Blood 03/24/2024 1:56 PM TRAFFIC ENGINEERING TECHNICIAN 03/24/2024 2:11 PM TRAFFIC ENGINEERING TECHNICIAN Mary Chris Milner LAB MICROBIOLOGY - GENERAL ORDERABLES Final Result Performing Organization Address [facility] Phone Number [address] [address] * (ABNORMAL) Hemoglobin A1c (03/24/2024 1:56 PM TRAFFIC ENGINEERING TECHNICIAN) [facility] Hgb A1C 5.8(H) 4.0 - 5.6 % Estimated Average Glucose 120 mg/dL [facility] Comment: The ADA recommends reporting an estimated Average Glucose (eAG) with all Hemoglobin A1c results using the equation derived from a study of 507 normal and diabetic adults. Minority populations were underrepresented and children were not included. (Diabetes Care 31:9439-1723, 2008). The eAG is not equivalent to a fasting glucose. Blood 03/24/2024 1:56 PM TRAFFIC ENGINEERING TECHNICIAN 03/24/2024 2:11 PM TRAFFIC ENGINEERING TECHNICIAN Result [facility] Mary Milner DO LAB BLOOD ORDERABLES Final Result Performing Organization Address [facility] de Phone Number [address] [address] * (ABNORMAL) Lipid panel (03/24/2024 1:56 PM TRAFFIC ENGINEERING TECHNICIAN) [facility] Cholesterol 201(H) 30 - 199 mg/dL Comment: Interpretive Data Ages < or = 19 years Acceptable: <170 mg/dL Borderline high: 170-199 mg/dL High: >or= 200 mg/dL Ages > or = 20 years Desirable: <200 mg/dL Borderline high: 200-239 mg/dL High: >or= 240 mg/dL Literature References: 1. Expert Panel on Integrated Guidelines for Cardiovascular Health and Risk Reduction in Children and Adolescents. Pediatrics 2011;128:S213 2. NCEP Expert Panel. Circulation 2004;110:227 Current Interpretive Data was last revised on 2017. Triglycerides 159(H) <=149 mg/dL [facility] Comment: Interpretive Data Ages < or = 9 years Acceptable: <75 mg/dL Borderline high: 75-99 mg/dL High: >or= 100 mg/dL Ages 10 to 20 years Acceptable: <90 mg/dL Borderline high: 90-129 mg/dL High: >or= 130 mg/dL Ages > or = 20 years Desirable: <150 mg/dL Borderline high: 150-199 mg/dL High: 200-499 mg/dL Very high: >or= 499 mg/dL Literature References: 1. Expert Panel on Integrated Guidelines for Cardiovascular Health and Risk Reduction in Children and Adolescents. Pediatrics 2011;128:S213 2. NCEP Expert Panel. Circulation 2004;110:227 Current Interpretive Data was last revised on 2017. HDL 53 >=40 mg/dL [facility] Comment: Interpretive Data Ages < or = 19 years Acceptable: >45 mg/dL Borderline low: 40-45 mg/dL Low: <40 mg/dL Ages > or = 20 years Desirable: >or= 60 mg/dL Low: <40 mg/dL Literature References: 1. Expert Panel on Integrated Guidelines for Cardiovascular Health and Risk Reduction in Children and Adolescents. Pediatrics 2011;128:S213 2. NCEP Expert Panel. Circulation 2004;110:227 Current Interpretive Data was last revised on 2017. LDL, calculated 120 <=129 mg/dL [facility] Comment: Interpretive Data Ages < or = 19 years Acceptable: <110 mg/dL Borderline high: 110-129 mg/dL High: >or= 130 mg/dL Ages > or = 20 years Optimal: <100 mg/dL Near optimal: 100-129 mg/dL Borderline high: 130-159 mg/dL High: >160 mg/dL Calculated using the Deal LDL-C estimating equation. This equation was implemented on 2023. Prior to this date LDL-C was estimated using the Friedewald equation. Literature References: 1. Expert Panel on Integrated Guidelines for Cardiovascular Health and Risk Reduction in Children and Adolescents. Pediatrics 2011;128:S213 2. NCEP Expert Panel. Circulation 2004;110:227 3. Say Dorado et al. ISH Cardiol. 2019August 05;5(5):540-548. doi: 10.1001/jamacardio.2020.0013 Current Interpretive Data was last revised on 2023. Non-HDL Cholesterol 148 mg/dL [facility] Comment: Interpretive Data Ages < or = 19 years Acceptable: <120 mg/dL Borderline high: 120-144 mg/dL High: >145 mg/dL Ages > or = 20 years When triglycerides are >200 mg/dL, Non-HDL cholesterol is a secondary target of therapy with treatment goals that are 30 mg/dL greater than the LDL cholesterol target. Literature References: 1. Expert Panel on Integrated Guidelines for Cardiovascular Health and Risk Reduction in Children and Adolescents. Pediatrics 2011;128:S213 2. NCEP Expert Panel. Circulation 2004;110:227 Current Interpretive Data was last revised on 2017. Chol/HDL ratio 4 [facility] Blood 03/24/2024 1:56 PM TRAFFIC ENGINEERING TECHNICIAN 03/24/2024 2:11 PM TRAFFIC ENGINEERING TECHNICIAN us Mary Milner DO LAB BLOOD ORDERABLES Final Result [facility] [address] [facility] Department [place] [address] * (ABNORMAL) Comprehensive metabolic panel (03/24/2024 1:56 PM TRAFFIC ENGINEERING TECHNICIAN) Pathologist [facility] Sodium 137 135 - 145 mmol/L Potassium, pl 3.8 3.3 - 4.9 mmol/L [facility] Chloride 102 97 - 110 mmol/L [facility] CO2 25 22 - 32 mmol/L [facility] Anion gap 10 2 - 15 mmol/L [facility] BUN 8 6 - 25 mg/dL [facility] Creatinine 0.59(L) 0.60 - 1.10 mg/dL [facility] Glucose 97 70 - 199 mg/dL [facility] Comment: Interpretive Data Fasting glucose >/= 126 mg/dl is diagnostic for diabetes. Fasting is defined as no caloric intake [...] 2022. Calcium 9.5 8.5 - 10.3 mg/dL [facility] Bilirubin, total 0.2 0.1 - 1.2 mg/dL [facility] Protein, pl 8.0 6.5 - 8.5 g/dL [facility] Albumin 4.3 3.5 - 5.0 g/dL [facility] Alk phos 84 40 - 130 Units/L [facility] ALT 6(L) 7 - 45 Units/L [facility] AST 16 10 - 45 Units/L [facility] Blood 03/24/2024 1:56 PM TRAFFIC ENGINEERING TECHNICIAN 03/24/2024 2:11 PM TRAFFIC ENGINEERING TECHNICIAN us Mary Milner DO LAB BLOOD ORDERABLES Final Result [facility] [address] [facility] Department [place] [address] * (ABNORMAL) Urinalysis reflex to microscopic and culture Urine, clean voided (03/24/2024 1:52 PM TRAFFIC ENGINEERING TECHNICIAN) Color, ur Yellow Yellow Clarity, ur Clear Clear [facility] Specific gravity, ur 1.020 1.003 - 1.030 [facility] pH, urine 7.0 [facility] Comment: Interpretive Data U rine pH is affected by diet, medications, systemic acid-base disturbances, and renal tubular function. pH may affect urinary stone formation. For example, urine pH below 6.0 may help reduce the tendency for calcium phosphate stones and pH greater than 6.0 may reduce the tendency for uric acid stone formation. Source: [facility] Current Interpretive Data was last revised on 2017 Protein, ur ql Negative Negative [facility] Glucose, ur ql Negative Negative [facility] Ketones, ur Negative Negative [facility] Bilirubin, ur Negative Negative [facility] Blood, ur 1+(A) Negative [facility] Urobilinogen, ur <2.0 <2.0 mg/dL [facility] Nitrite, ur Negative Negative [facility] Leukocyte esterase, ur Negative Negative [facility] UA reflex comment Reflex to microscopic UA will be performed. [facility] Urine, clean voided 03/24/2024 1:52 PM TRAFFIC ENGINEERING TECHNICIAN 03/24/2024 2:09 PM TRAFFIC ENGINEERING TECHNICIAN Narrative [facility] - 03/24/2024 2:18 PM TRAFFIC ENGINEERING TECHNICIAN Urine Collection Method->Clean Catch Mary Milner DO LAB MICROBIOLOGY - GENERAL ORDERABLES Final Result Performing Organization Address [facility] Co de Phone Number [place] [phone] [facility] [place] [address] * (ABNORMAL) Urinalysis, microscopic only (03/24/2024 1:52 PM TRAFFIC ENGINEERING TECHNICIAN) WBC, ur 0-5 0 - 5 /HPF RBC, ur 11-20(A) 0 - 2 /HPF [facility] Epithelial cells, squamous, ur 1-5 0 - 5 /HPF [facility] Mucous, ur Present(A) [facility] Culture Reflex Comment Reflex conditions for urine culture (WBC >10) not met. [facility] Urine, clean voided 03/24/2024 1:52 PM TRAFFIC ENGINEERING TECHNICIAN 03/24/2024 2:12 PM TRAFFIC ENGINEERING TECHNICIAN Mary Milner DO LAB URINE ORDERABLES Final Result Performing Organization Address [facility] Co de Phone Number [place] [phone] [facility] [employer] [place], [place] [id number] from Last 3 Months Insurance [employer] ACCESS OOS Care Teams Blood Tester Relationship Specialty Start Date End Date Mary Milner DO [address] [place] [address] PCP - General Family Medicine 03/24/24
--- OUTSIDE RECORDS SUMMARY | 2024-05-15 02:09 | XMS_ITS | Referral Summary ---
Author Organization [address] Address [address] [facility] [address] [place] [address] Care Team Providers Care Student Assistant Name Role Phone Mary Milner DO Primary Care Provider [phone]- [phone] Encounters Date Type Department Care Team Description 04/22/2024 Telephone [facility] [address] [phone] Saba Reis MA 03/26/2024 Orders Only [facility] [address] [place] [phone] Mary Milner DO Asymptomatic microscopic hematuria (Primary Dx) 03/25/2024 Telephone [facility] [address] [place] [phone] Mary Milner DO 03/24/2024 1:45 PM [employer] Lab [facility] [address] [place] [address] Need for hepatitis B screening test; Need [...] Screening for deficiency anemia 03/24/2024 1:00 PM [employer] Office Visit [facility] [address] [place] [phone] Mary Milner DO Annual physical exam [...] 03/24/2024 Assessment & Plan (03/24/2024 1:52 PM [employer]): Stable. Cont. Current prescription medications. Generalized anxiety disorder 03/24/2024 Assessment & Plan (03/24/2024 1:54 PM [employer]): Stable. Cont. Current prescription medications. Immunizations Name [...] on file Legal Sex Female 1:52 PM [employer] Gender Identity Not on file Sexual Orientation Not on file Last Filed Vital Signs Vital Sign Reading Time Taken Comments Blood Pressure 100/62 03/24/2024 1:10 PM [employer] Pulse 82 03/24/2024 1:10 PM [employer] Temperature - - Respiratory Rate 14 03/24/2024 1:10 PM [employer] Oxygen Saturation 98% 03/24/2024 1:10 PM [employer] Inhaled Oxygen Concentration - - Weight 85.7 kg (189 lb) 03/24/2024 1:10 PM [employer] Height 162.6 cm (5' 4 ) 03/24/2024 1:10 PM [employer] Body Mass Index 32.44 03/24/2024 1:10 PM [employer] Plan of Treatment Not on file Procedures Procedure Name Priority Date/Time Associated Diagnosis Comments EGFR Routine 03/24/2024 1:56 PM [employer] Annual physical exam Encounter for screening for other digestive system disorders DIFFERENTIAL AUTO Routine 03/24/2024 1:5 6 PM [employer] Annual physical exam Screening for deficiency anemia CBC WITH AUTO DIFFERENTIAL Routine 03/24/2024 1:56 PM [employer] Annual physical exam Screening for deficiency anemia COMPREHENSIVE METABOLIC PANEL Routine 03/24/2024 1:56 PM [employer] Annual physical exam Encounter for screening for other digestive system disorders HEMOGLOBIN A1C Routine 03/24/2024 1:56 PM [employer] Annual physical exam Encounter for screening examination for impaired glucose regulation and diabetes mellitus LIPID PANEL Routine 03/24/2024 1:56 PM [employer] Annual physical exam Encounter for lipid screening for cardiovascular disease THYROID FUNCTION CASCADE Routine 03/24/2024 1:56 PM [employer] Annual physical exam Mild episode of recurrent major depressive disorder (HCC) Generalized anxiety disorder Screening for thyroid disorder HEPATITIS C ANTIBODY Routine 03/24/2024 1:56 PM [employer] Need for hepatitis C screening test HEPATITIS B SURFACE ANTIGEN Routine 03/24/2024 1:56 PM [employer] Need for hepatitis B screening test HEPATITIS B SURFACE ANTIBODY (IMMUNE STATUS) Routine 03/24/2024 1:56 PM [employer] Need for hepatitis B screening test HEPATITIS B CORE ANTIBODY, TOTAL Routine 03/24/2024 1:56 PM [employer] Need for hepatitis B screening test URINALYSIS, MICROSCOPIC ONLY Routine 03/24/2024 1:52 PM [employer] Annual physical exam Screening for blood or protein in urine URINALYSIS AND REFLEX TO MICROSCOPIC AND CULTURE Routine 03/24/2024 1:52 PM [employer] Annual physical exam Screening for blood or protein in urine from Last 3 Months Results * eGFR (03/24/2024 1:56 PM [employer]) eGFR >90 >=60 mL/min/1. 73 m2 Comment: [...] last reviewed 2021. Blood 03/24/2024 1:56 PM [employer] 03/24/2024 2:11 PM [employer] Mary Milner DO LAB BLOOD ORDERABLES Final Result [facility] [address] [facility] [place] [address] * Differential, auto (03/24/2024 1:56 PM LE[employer]) Pathologist [facility] Neutrophil abs 5.5 1.5 - 6.5 K/cumm Imm gran abs 0.0 0.0 - 0.1 K/cumm [facility] Lymphocyte abs 2.1 0.8 - 3.3 K/cumm [facility] Monocyte abs 0.6 0.2 - 0.8 K/cumm [facility] Eosinophil abs 0.1 0.0 - 0.5 K/cumm [facility] Basophil abs 0.0 0.0 - 0.1 K/cumm [facility] Neutrophil pct 66.5 % [facility] Comment: Interpretive Data Percent cell count reference ranges are not reported, since discordance with absolute values may lead to misinterpretation of CBC data. Current Interpretive Data was last revised on 2017. Imm gran pct 0.2 % [facility] Comment: Interpretive Data Percent cell count reference ranges are not reported, since discordance with absolute values may lead to misinterpretation of CBC data. Current Interpretive Data was last revised on 2017. Lymphocyte pct 25.3 % [facility] Comment: Interpretive Data Percent cell count reference ranges are not reported, since discordance with absolute values may lead to misinterpretation of CBC data. Current Interpretive Data was last revised on 2017. Monocyte pct 6.8 % [facility] Comment: Interpretive Data Percent cell count reference ranges are not reported, since discordance with absolute values may lead to misinterpretation of CBC data. Current Interpretive Data was last revised on 2017. Eosinophil pct 0.8 % [facility] Comment: Interpretive Data Percent cell count reference ranges are not reported, since discordance with absolute values may lead to misinterpretation of CBC data. Current Interpretive Data was last revised on 2017. Basophil pct 0.4 % [facility] Comment: Interpretive Data Percent cell count reference ranges are not reported, since discordance with absolute values may lead to misinterpretation of CBC data. Current Interpretive Data was last revised on 2017. Blood 03/24/2024 1:56 PM [employer] 03/24/2024 2:11 PM [employer] Mary Milner DO LAB BLOOD ORDERABLES Final Result Performing Organization Address [facility] Co de Phone Number [address] [address] * Thyroid Function [place] (03/24/2024 1:56 PM LE[employer]) [facility] TSH 1.88 0.30 - 4.20 mcIUnit/mL Blood 03/24/2024 1:56 PM [employer] 03/24/2024 2:11 PM [employer] Mary Milner LAB BLOOD ORDERABLES Final Result Performing Organization Address [facility] de Phone Number [address] [address] * (ABNORMAL) CBC with auto differential (03/24/2024 1:56 PM [employer]) [facility] WBC 8.3 3.8 - 9.9 K/cumm Hgb 11.4(L) 11.9 - 15.5 g/dL [facility] Hct 36.3 35.6 - 45.5 % [facility] Plt 414(H) 150 - 400 K/cumm [facility] MPV 10.0 9.1 - 12.3 fL [facility] RBC 4.33 3.90 - 5.20 M/cumm [facility] MCV 83.8 81.3 - 96.4 fL [facility] MCH 26.3(L) 27.1 - 33.3 pg [facility] MCHC 31.4(L) 32.3 - 35.7 g/dL [facility] RDW CV 14.0 11.1 - 14.9 % [facility] RDW SD 42.7 35.7 - 48.1 fL [facility] NRBC abs 0.00 0.00 - 0.01 K/cumm [facility] Blood 03/24/2024 1:56 PM [employer] 03/24/2024 2:11 PM [employer] Mary Milner DO LAB BLOOD ORDERABLES Final Result Performing Organization Address [facility] Co de Phone Number [facility] [address] [place] [address] * Hepatitis C antibody Blood (03/24/2024 1:56 PM [employer]) Hep C Ab Nonreactive Nonreactive Comment: Antibodies [...] revised on 2019. Blood 03/24/2024 1:56 PM [employer] 03/24/2024 2:11 PM [employer] Mary Milner DO LAB MICROBIOLOGY - GENERAL ORDERABLES Final Result Performing Organization Address [facility] Co de Phone Number [facility] [address] [place] [address] [place] [address] * Hepatitis B core antibody, total Blood (03/24/2024 1:56 PM [employer]) Hep B core IgG/IgM Nonreactive Nonreactive Comment:Testing performed by : [facility], [address] [facility], [place]., [address] Blood 03/24/2024 1:56 PM [employer] 03/24/2024 5:54 PM [employer] Mary Milner DO LAB MICROBIOLOGY - GENERAL ORDERABLES Final Result Performing Organization Address [facility] Co de Phone Number [facility]EE[address] [employer] [address] * Hepatitis B surface antibody (immune status) Blood (03/24/2024 1:56 PM [employer]) HBsAb (immune status) Nonreactive Comment: Interpretive Data [...] revised on 19. Blood 03/24/2024 1:56 PM [employer] 03/24/2024 2:11 PM [employer] Mary Milner DO LAB MICROBIOLOGY - GENERAL ORDERABLES Final Result Performing Organization Address [facility] Co de Phone Number [address] [employer] [place] [address] * Hepatitis B Surface Antigen Blood (03/24/2024 1:56 PM [employer]) HepBsAg Nonreactive Nonreactive Blood 03/24/2024 1:56 PM [employer] 03/24/2024 2:11 PM [employer] us Mary Milner DO LAB MICROBIOLOGY - GENERAL ORDERABLES Final Result [facility] [employer] [place] [address] * (ABNORMAL) Hemoglobin A1c (03/24/2024 1:56 PM [employer]) Hgb A1C 5.8(H) 4.0 - 5.6 % Estimated Average Glucose 120 mg/dL [facility] Comment: The ADA recommends reporting an estimated Average Glucose (eAG) with all Hemoglobin A1c results using the equation derived from a study of 507 normal and diabetic adults. Minority populations were underrepresented and children were not included. (Diabetes Care 31:4678-1571, 2008). The eAG is not equivalent to a fasting glucose. Blood 03/24/2024 1:56 PM [employer] 03/24/2024 2:11 PM [employer] us Mary Milner DO LAB BLOOD ORDERABLES Final Result [facility] [address] [facility] [place] [address] * (ABNORMAL) Lipid panel (03/24/2024 1:56 PM [employer]) Cholesterol 201(H) 30 - 199 mg/dL Comment: [...] mg/dL High: >160 mg/dL Calculated using the Say LDL-C estimating [...] last revised on 2017. Chol/HDL ratio 4 [facility] Blood 03/24/2024 1:56 PM [employer] 03/24/2024 2:11 PM [employer] us Mary Milner DO LAB BLOOD ORDERABLES Final Result [facility] [address] [facility] [place] [address] * (ABNORMAL) Comprehensive metabolic panel (03/24/2024 1:56 PM [employer]) Sodium 137 135 - 145 mmol/L Potassium, pl 3.8 3.3 - 4.9 mmol/L [facility] Chloride 102 97 - 110 mmol/L [facility] CO2 25 22 - 32 mmol/L [facility] Anion gap 10 2 - 15 mmol/L [facility] BUN 8 6 - 25 mg/dL [facility] Creatinine 0.59(L) 0.60 - 1.10 mg/dL [facility] Glucose 97 70 - 199 mg/dL [facility] Comment: Interpretive Data Fasting glucose >/= 126 [...] 2022. Calcium 9.5 8.5 - 10.3 mg/dL [facility] Bilirubin, total 0.2 0.1 - 1.2 mg/dL [facility] Protein, pl 8.0 6.5 - 8.5 g/dL [facility] Albumin 4.3 3.5 - 5.0 g/dL [facility] Alk phos 84 40 - 130 Units/L [facility] ALT 6(L) 7 - 45 Units/L [facility] AST 16 10 - 45 Units/L [facility] Blood 03/24/2024 1:56 PM [employer] 03/24/2024 2:11 PM [employer] Mary Milner DO LAB BLOOD ORDERABLES Final Result Performing Organization Address [facility] Co de Phone Number [facility] [address] [address] * (ABNORMAL) Urinalysis reflex to microscopic and culture Urine, clean voided (03/24/2024 1:52 PM [employer]) Color, ur Yellow Yellow Clarity, ur Clear Clear [facility] Specific gravity, ur 1.020 1.003 - 1.030 [facility] pH, urine 7.0 [facility] Comment: Interpretive Data U rine pH is affected by diet, medications, systemic acid-base disturbances, and renal tubular function. pH may affect urinary stone formation. For example, urine pH below 6.0 may help reduce the tendency for calcium phosphate stones and pH greater than 6.0 may reduce the tendency for uric acid stone formation. Source: [facility] Current Interpretive Data was last revised on 2017 Protein, ur ql Negative Negative [facility] Glucose, ur ql Negative Negative [facility] Ketones, ur Negative Negative [facility] Bilirubin, ur Negative Negative [facility] Blood, ur 1+(A) Negative [facility] Urobilinogen, ur <2.0 <2.0 mg/dL [facility] Nitrite, ur Negative Negative [facility] Leukocyte esterase, ur Negative Negative [facility] UA reflex comment Reflex to microscopic UA will be performed. [facility] Urine, clean voided 03/24/2024 1:52 PM [employer] 03/24/2024 2:09 PM [employer] Narrative [facility] - 03/24/2024 2:18 PM [employer] Urine Collection Method->Clean Catch Mary Milner DO LAB MICROBIOLOGY - GENERAL ORDERABLES Final Result Performing Organization Address [facility] Co de Phone Number [facility]IR[facility] [address] [address] * (ABNORMAL) Urinalysis, microscopic only (03/24/2024 1:52 PM [employer]) WBC, ur 0-5 0 - 5 /HPF RBC, ur 11-20(A) 0 - 2 /HPF [facility] Epithelial cells, squamous, ur 1-5 0 - 5 /HPF [facility] Mucous, ur Present(A) [facility] Culture Reflex Comment Reflex conditions for urine culture (WBC >10) not met. [facility] Urine, clean voided 03/24/2024 1:52 PM [employer] 03/24/2024 2:12 PM [employer] us Mary Milner DO LAB URINE ORDERABLES Final Result [facility] [address] [facility] [place] [address] from Last 3 Months Insurance [employer] Care Teams Student Assistant Relationship Specialty Start Date End Date Mary Milner DO [address] [facility] [address] [address] PCP - General Family Medicine 03/24/24
[2024-05-15 02:10] VITALS: BP 133/71; PULSE 119; RESP 20; TEMP 37.1; O2SAT 99
[2024-05-15 03:38] LABS: Basophils Percent Auto 0.2 % (0.2-1.2); Eosinophils Percent Auto 0.1 % (0-4.4); Hematocrit 35.1 % (37.0-47.0); Hemoglobin 11.2 g/dL (12.0-15.0); Immature Granulocyte Absolute 0.05 K/mm3 (0.00-0.031); Immature Granulocyte Percent A 0.4 % (0-0.5); Lymphocytes Absolute Auto 0.32 K/mm3 (0.9-3.2); Lymphocytes Percent Auto 2.5 % (18.3-44.2); Mean Corpuscular HGB Conc 31.9 g/dl (32-36); Mean Corpuscular Hemoglobin 26.4 pg (26-34); Mean Corpuscular Volume 82.8 fl (80-100); Mean Platelet Volume 10.2 fl (7.4-10.4); Monocytes Absolute Auto 0.5 K/mm3 (0.1-0.6); Monocytes Percent Auto 4.2 % (2.6-8.5); Neutrophils Percent Auto 92.6 % (45.5-73.1); Platelet Count Result 335 k/mm3 (150-375); Red Blood Count 4.24 M/mm3 (4.2-5.4); Red Cell Distribution Width 14.6 % (11.5-14.5)
[2024-05-15 03:50] LABS: Alanine Aminotransferase 19 U/L (6-35); Albumin Level 4.6 g/dL (3.5-5.1); Alkaline Phosphatase 85 U/L (38-126); Anion Gap 10 mmol/L (4-12); Aspartate Amino Transferase 22 U/L (14-36); Bilirubin,Total 0.5 mg/dL (0.2-1.3); Blood Urea Nitrogen 13 mg/dL (7-17); Calcium 9.6 mg/dL (8.4-10.2); Carbon Dioxide 24 mmol/L (22-30); Chloride 103 mmol/L (98-107); Estimated CRCL calculation 142 ml/min; Estimated Glomerular Filt Rate > 60; Glucose 115 mg/dL (65-110); Lipase 48 U/L (23-300); Potassium 4.3 mmol/L (3.4-5.0); Sodium 137 mmol/L (137-145)
--- OUTSIDE RECORDS SUMMARY | 2024-05-15 04:02 | XMS_ITS | Clinical Summary ---
Author Organization [facility] Address [address] [facility] 5th [place] [address] Care Team Providers Care Automotive Upholsterer Name Role Phone Mary Milner Primary Care Provider [phone]- [phone] Allergies No known active allergies Medications sertraline [...] 03/24/2024 Assessment & Plan (03/24/2024 1:52 PM MAINTAINER OPERATOR): Stable. Cont. Current prescription medications. Generalized anxiety disorder 03/24/2024 Assessment & Plan (03/24/2024 1:54 PM MAINTAINER OPERATOR): Stable. Cont. Current prescription medications. Encounters Date Type Department Care Team Description 04/22/2024 Telephone [facility] Family Medicine [address] [place] [address] [place] [id number] Saba Reis MA 03/26/2024 Orders Only [facility] at [place] [address] [facility] [address] [place] [address] Mary Milner DO Asymptomatic microscopic hematuria (Primary Dx) 03/25/2024 Telephone [facility] [address] [facility] [address] [place] [address] Mary Milner DO 03/24/2024 1:45 PM MAINTAINER OPERATOR Lab [facility] [address] [place] [address] Need for hepatitis B screening test; Need [...] Screening for deficiency anemia 03/24/2024 1:00 PM MAINTAINER OPERATOR Office Visit [facility] [place] [address] [facility] [address] [place] [address] Mary Milner DO Annual physical exam (Primary [...] on file Legal Sex Female 1:52 PM MAINTAINER OPERATOR Gender Identity Not on file Sexual Orientation Not on file Obstetrics History Last Filed Vital Signs Vital Sign Reading Time Taken Comments Blood Pressure 100/62 03/24/2024 1:10 PM MAINTAINER OPERATOR Pulse 82 03/24/2024 1:10 PM MAINTAINER OPERATOR Temperature - - Respiratory Rate 14 03/24/2024 1:10 PM MAINTAINER OPERATOR Oxygen Saturation 98% 03/24/2024 1:10 PM MAINTAINER OPERATOR Inhaled Oxygen Concentration - - Weight 85.7 kg (189 lb) 03/24/2024 1:10 PM MAINTAINER OPERATOR Height 162.6 cm (5' 4 ) 03/24/2024 1:10 PM MAINTAINER OPERATOR Body Mass Index 32.44 03/24/2024 1:10 PM MAINTAINER OPERATOR Plan of Treatment Health Maintenance Due Date [...] Diagnosis Comments EGFR Routine 03/24/2024 1:56 PM MAINTAINER OPERATOR Annual physical exam Encounter for screening for other digestive system disorders DIFFERENTIAL AUTO Routine 03/24/2024 1:5 6 PM MAINTAINER OPERATOR Annual physical exam Screening for deficiency anemia CBC WITH AUTO DIFFERENTIAL Routine 03/24/2024 1:56 PM MAINTAINER OPERATOR Annual physical exam Screening for deficiency anemia COMPREHENSIVE METABOLIC PANEL Routine 03/24/2024 1:56 PM MAINTAINER OPERATOR Annual physical exam Encounter for screening for other digestive system disorders HEMOGLOBIN A1C Routine 03/24/2024 1:56 PM MAINTAINER OPERATOR Annual physical exam Encounter for screening examination for impaired glucose regulation and diabetes mellitus LIPID PANEL Routine 03/24/2024 1:56 PM MAINTAINER OPERATOR Annual physical exam Encounter for lipid screening for cardiovascular disease THYROID FUNCTION CASCADE Routine 03/24/2024 1:56 PM MAINTAINER OPERATOR Annual physical exam Mild episode of recurrent major depressive disorder (HCC) Generalized anxiety disorder Screening for thyroid disorder HEPATITIS C ANTIBODY Routine 03/24/2024 1:56 PM MAINTAINER OPERATOR Need for hepatitis C screening test HEPATITIS B SURFACE ANTIGEN Routine 03/24/2024 1:56 PM MAINTAINER OPERATOR Need for hepatitis B screening test HEPATITIS B SURFACE ANTIBODY (IMMUNE STATUS) Routine 03/24/2024 1:56 PM MAINTAINER OPERATOR Need for hepatitis B screening test HEPATITIS B CORE ANTIBODY, TOTAL Routine 03/24/2024 1:56 PM MAINTAINER OPERATOR Need for hepatitis B screening test URINALYSIS, MICROSCOPIC ONLY Routine 03/24/2024 1:52 PM MAINTAINER OPERATOR Annual physical exam Screening for blood or protein in urine URINALYSIS AND REFLEX TO MICROSCOPIC AND CULTURE Routine 03/24/2024 1:52 PM MAINTAINER OPERATOR Annual physical exam Screening for blood or protein in urine from Last 3 Months Results * eGFR (03/24/2024 1:56 PM MAINTAINER OPERATOR) eGFR >90 >=60 mL/min/1. 73 m2 Comment: [...] last reviewed 2021. Blood 03/24/2024 1:56 PM MAINTAINER OPERATOR 03/24/2024 2:11 PM MAINTAINER OPERATOR us Mary Milner DO LAB BLOOD ORDERABLES Final Result [facility] [address] [facility] Department [place] [address] * Differential, auto (03/24/2024 1:56 PM MAINTAINER OPERATOR) Pathologist [facility] Neutrophil abs 5.5 1.5 - 6.5 K/cumm Imm gran abs 0.0 0.0 - 0.1 K/cumm [facility] Lymphocyte abs 2.1 0.8 - 3.3 K/cumm [facility] Monocyte abs 0.6 0.2 - 0.8 K/cumm [facility] Eosinophil abs 0.1 0.0 - 0.5 K/cumm [facility] Basophil abs 0.0 0.0 - 0.1 K/cumm [facility] Neutrophil pct 66.5 % [facility] Comment: Interpretive Data Percent cell count reference ranges are not reported, since discordance with absolute values may lead to misinterpretation of CBC data. Current Interpretive Data was last revised on 2017. Imm gran pct 0.2 % [facility] Comment: Interpretive Data Percent cell count reference ranges are not reported, since discordance with absolute values may lead to misinterpretation of CBC data. Current Interpretive Data was last revised on 2017. Lymphocyte pct 25.3 % [facility] Comment: Interpretive Data Percent cell count reference ranges are not reported, since discordance with absolute values may lead to misinterpretation of CBC data. Current Interpretive Data was last revised on 2017. Monocyte pct 6.8 % [facility] Comment: Interpretive Data Percent cell count reference ranges are not reported, since discordance with absolute values may lead to misinterpretation of CBC data. Current Interpretive Data was last revised on 2017. Eosinophil pct 0.8 % [facility] Comment: Interpretive Data Percent cell count reference ranges are not reported, since discordance with absolute values may lead to misinterpretation of CBC data. Current Interpretive Data was last revised on 2017. Basophil pct 0.4 % [facility] Comment: Interpretive Data Percent cell count reference ranges are not reported, since discordance with absolute values may lead to misinterpretation of CBC data. Current Interpretive Data was last revised on 2017. Blood 03/24/2024 1:56 PM MAINTAINER OPERATOR 03/24/2024 2:11 PM MAINTAINER OPERATOR us Mary Milner DO LAB BLOOD ORDERABLES Final Result [facility] [address] [facility] Department [place] [address] * Thyroid Function [place] (03/24/2024 1:56 PM MAINTAINER OPERATOR) TSH 1.88 0.30 - 4.20 mcIUnit/mL Blood 03/24/2024 1:56 PM MAINTAINER OPERATOR 03/24/2024 2:11 PM MAINTAINER OPERATOR Mary Milner DO LAB BLOOD ORDERABLES Final Result Performing Organization Address [facility] de Phone Number [facility] [address] [place] [place] [address] * (ABNORMAL) CBC with auto differential (03/24/2024 1:56 PM MAINTAINER OPERATOR) [facility] WBC 8.3 3.8 - 9.9 K/cumm Hgb 11.4(L) 11.9 - 15.5 g/dL [facility] Hct 36.3 35.6 - 45.5 % [facility] Plt 414(H) 150 - 400 K/cumm [facility] MPV 10.0 9.1 - 12.3 fL [facility] RBC 4.33 3.90 - 5.20 M/cumm [facility] MCV 83.8 81.3 - 96.4 fL [facility] MCH 26.3(L) 27.1 - 33.3 pg [facility] MCHC 31.4(L) 32.3 - 35.7 g/dL [facility] RDW CV 14.0 11.1 - 14.9 % [facility] RDW SD 42.7 35.7 - 48.1 fL [facility] NRBC abs 0.00 0.00 - 0.01 K/cumm [facility] Blood 03/24/2024 1:56 PM MAINTAINER OPERATOR 03/24/2024 2:11 PM MAINTAINER OPERATOR Mary Milner DO LAB BLOOD ORDERABLES Final Result Performing Organization Address [facility] Co de Phone Number [facility] [address] [place] [place] [address] * Hepatitis C antibody Blood (03/24/2024 1:56 PM MAINTAINER OPERATOR) [facility] Hep C Ab Nonreactive Nonreactive Comment: [...] revised on 2019. Blood 03/24/2024 1:56 PM MAINTAINER OPERATOR 03/24/2024 2:11 PM MAINTAINER OPERATOR Mary Milner DO LAB MICROBIOLOGY - GENERAL ORDERABLES Final Result Performing Organization Address [facility]/ZIP Co de Phone Number [address] [place] [place] [address] * Hepatitis B core antibody, total Blood (03/24/2024 1:56 PM MAINTAINER OPERATOR) Hep B core IgG/IgM Nonreactive Nonreactive Comment:Testing performed by : [facility], [address] [place]., [address] Blood 03/24/2024 1:56 PM MAINTAINER OPERATOR 03/24/2024 5:54 PM MAINTAINER OPERATOR Mary Milner LAB MICROBIOLOGY - GENERAL ORDERABLES Final Result Performing Organization Address [facility] Co de Phone Number [address] [place] [address] * Hepatitis B surface antibody (immune status) Blood (03/24/2024 1:56 PM MAINTAINER OPERATOR) HBsAb (immune status) Nonreactive Comment: Interpretive Data [...] revised on 19. Blood 03/24/2024 1:56 PM MAINTAINER OPERATOR 03/24/2024 2:11 PM MAINTAINER OPERATOR Mary Milner DO LAB MICROBIOLOGY - GENERAL ORDERABLES Final Result Performing Organization Address [facility] Co de Phone Number [facility] [address] [address] * Hepatitis B Surface Antigen Blood (03/24/2024 1:56 PM MAINTAINER OPERATOR) Pathologist [facility] HepBsAg Nonreactive Nonreactive Blood 03/24/2024 1:56 PM MAINTAINER OPERATOR 03/24/2024 2:11 PM MAINTAINER OPERATOR Mary Chris Milner LAB MICROBIOLOGY - GENERAL ORDERABLES Final Result Performing Organization Address [facility] Phone Number [address] [address] * (ABNORMAL) Hemoglobin A1c (03/24/2024 1:56 PM MAINTAINER OPERATOR) [facility] Hgb A1C 5.8(H) 4.0 - 5.6 % Estimated Average Glucose 120 mg/dL [facility] Comment: The ADA recommends reporting an estimated Average Glucose (eAG) with all Hemoglobin A1c results using the equation derived from a study of 507 normal and diabetic adults. Minority populations were underrepresented and children were not included. (Diabetes Care 31:7933-8633, 2008). The eAG is not equivalent to a fasting glucose. Blood 03/24/2024 1:56 PM MAINTAINER OPERATOR 03/24/2024 2:11 PM MAINTAINER OPERATOR Result [facility] Mary Milner DO LAB BLOOD ORDERABLES Final Result Performing Organization Address [facility] de Phone Number [address] [address] * (ABNORMAL) Lipid panel (03/24/2024 1:56 PM MAINTAINER OPERATOR) [facility] Cholesterol 201(H) 30 - 199 mg/dL [...] revised on 2023. Non-HDL Cholesterol 148 mg/dL [facility] Comment: Interpretive Data Ages < or [...] last revised on 2017. Chol/HDL ratio 4 [facility] Blood 03/24/2024 1:56 PM MAINTAINER OPERATOR 03/24/2024 2:11 PM MAINTAINER OPERATOR us Mary Milner DO LAB BLOOD ORDERABLES Final Result [facility] [address] [facility] Department [place] [address] * (ABNORMAL) Comprehensive metabolic panel (03/24/2024 1:56 PM MAINTAINER OPERATOR) Pathologist [facility] Sodium 137 135 - 145 mmol/L Potassium, pl 3.8 3.3 - 4.9 mmol/L [facility] Chloride 102 97 - 110 mmol/L [facility] CO2 25 22 - 32 mmol/L [facility] Anion gap 10 2 - 15 mmol/L [facility] BUN 8 6 - 25 mg/dL [facility] Creatinine 0.59(L) 0.60 - 1.10 mg/dL [facility] Glucose 97 70 - 199 mg/dL [facility] Comment: Interpretive Data Fasting glucose >/= [...] 2022. Calcium 9.5 8.5 - 10.3 mg/dL [facility] Bilirubin, total 0.2 0.1 - 1.2 mg/dL [facility] Protein, pl 8.0 6.5 - 8.5 g/dL [facility] Albumin 4.3 3.5 - 5.0 g/dL [facility] Alk phos 84 40 - 130 Units/L [facility] ALT 6(L) 7 - 45 Units/L [facility] AST 16 10 - 45 Units/L [facility] Blood 03/24/2024 1:56 PM MAINTAINER OPERATOR 03/24/2024 2:11 PM MAINTAINER OPERATOR us Mary Milner DO LAB BLOOD ORDERABLES Final Result [facility] [address] [facility] Department [place] [address] * (ABNORMAL) Urinalysis reflex to microscopic and culture Urine, clean voided (03/24/2024 1:52 PM MAINTAINER OPERATOR) Color, ur Yellow Yellow Clarity, ur Clear Clear [facility] Specific gravity, ur 1.020 1.003 - 1.030 [facility] pH, urine 7.0 [facility] Comment: Interpretive Data U rine pH is affected by diet, medications, systemic acid-base disturbances, and renal tubular function. pH may affect urinary stone formation. For example, urine pH below 6.0 may help reduce the tendency for calcium phosphate stones and pH greater than 6.0 may reduce the tendency for uric acid stone formation. Source: [facility] Current Interpretive Data was last revised on 2017 Protein, ur ql Negative Negative [facility] Glucose, ur ql Negative Negative [facility] Ketones, ur Negative Negative [facility] Bilirubin, ur Negative Negative [facility] Blood, ur 1+(A) Negative [facility] Urobilinogen, ur <2.0 <2.0 mg/dL [facility] Nitrite, ur Negative Negative [facility] Leukocyte esterase, ur Negative Negative [facility] UA reflex comment Reflex to microscopic UA will be performed. [facility] Urine, clean voided 03/24/2024 1:52 PM MAINTAINER OPERATOR 03/24/2024 2:09 PM MAINTAINER OPERATOR Narrative [facility] - 03/24/2024 2:18 PM MAINTAINER OPERATOR Urine Collection Method->Clean Catch Mary Milner DO LAB MICROBIOLOGY - GENERAL ORDERABLES Final Result Performing Organization Address [facility] Co de Phone Number [place] [phone] [facility] [place] [address] * (ABNORMAL) Urinalysis, microscopic only (03/24/2024 1:52 PM MAINTAINER OPERATOR) WBC, ur 0-5 0 - 5 /HPF RBC, ur 11-20(A) 0 - 2 /HPF [facility] Epithelial cells, squamous, ur 1-5 0 - 5 /HPF [facility] Mucous, ur Present(A) [facility] Culture Reflex Comment Reflex conditions for urine culture (WBC >10) not met. [facility] Urine, clean voided 03/24/2024 1:52 PM MAINTAINER OPERATOR 03/24/2024 2:12 PM MAINTAINER OPERATOR Mary Milner DO LAB URINE ORDERABLES Final Result Performing Organization Address [facility] Co de Phone Number [place] [phone] [facility] [employer] [place], [place] [phone] from Last 3 Months Insurance [employer] ACCESS OOS Care Teams Automotive Upholsterer Relationship Specialty Start Date End Date Mary Milner DO [address] [place] [address] PCP - General Family Medicine 03/24/24
--- OUTSIDE RECORDS SUMMARY | 2024-05-15 04:02 | XMS_ITS | Referral Summary ---
Author Organization [address] Address [address] [facility] [address] [place] [address] Care Team Providers Care Stacker Operator Name Role Phone Mary Milner DO Primary Care Provider [phone]- [phone] Encounters Date Type Department Care Team Description 04/22/2024 Telephone [facility] Family Medicine [address] [phone] Saba Reis MA 03/26/2024 Orders Only [facility] [address] [place] [phone] Mary Milner DO Asymptomatic microscopic hematuria (Primary Dx) 03/25/2024 Telephone [facility] [address] [place] [phone] Mary Milner DO 03/24/2024 1:45 PM RADIO STATION MANAGER Lab [facility] [address] [place] [address] Need for hepatitis B screening test; Need [...] Screening for deficiency anemia 03/24/2024 1:00 PM RADIO STATION MANAGER Office Visit [facility] Family Medicine [facility] [address] [place] [phone] Mary Milner DO Annual physical exam [...] 03/24/2024 Assessment & Plan (03/24/2024 1:52 PM RADIO STATION MANAGER): Stable. Cont. Current prescription medications. Generalized anxiety disorder 03/24/2024 Assessment & Plan (03/24/2024 1:54 PM RADIO STATION MANAGER): Stable. Cont. Current prescription medications. Immunizations Name [...] on file Legal Sex Female 1:52 PM RADIO STATION MANAGER Gender Identity Not on file Sexual Orientation Not on file Last Filed Vital Signs Vital Sign Reading Time Taken Comments Blood Pressure 100/62 03/24/2024 1:10 PM RADIO STATION MANAGER Pulse 82 03/24/2024 1:10 PM RADIO STATION MANAGER Temperature - - Respiratory Rate 14 03/24/2024 1:10 PM RADIO STATION MANAGER Oxygen Saturation 98% 03/24/2024 1:10 PM RADIO STATION MANAGER Inhaled Oxygen Concentration - - Weight 85.7 kg (189 lb) 03/24/2024 1:10 PM RADIO STATION MANAGER Height 162.6 cm (5' 4 ) 03/24/2024 1:10 PM RADIO STATION MANAGER Body Mass Index 32.44 03/24/2024 1:10 PM RADIO STATION MANAGER Plan of Treatment Not on file Procedures Procedure Name Priority Date/Time Associated Diagnosis Comments EGFR Routine 03/24/2024 1:56 PM RADIO STATION MANAGER Annual physical exam Encounter for screening for other digestive system disorders DIFFERENTIAL AUTO Routine 03/24/2024 1:5 6 PM RADIO STATION MANAGER Annual physical exam Screening for deficiency anemia CBC WITH AUTO DIFFERENTIAL Routine 03/24/2024 1:56 PM RADIO STATION MANAGER Annual physical exam Screening for deficiency anemia COMPREHENSIVE METABOLIC PANEL Routine 03/24/2024 1:56 PM RADIO STATION MANAGER Annual physical exam Encounter for screening for other digestive system disorders HEMOGLOBIN A1C Routine 03/24/2024 1:56 PM RADIO STATION MANAGER Annual physical exam Encounter for screening examination for impaired glucose regulation and diabetes mellitus LIPID PANEL Routine 03/24/2024 1:56 PM RADIO STATION MANAGER Annual physical exam Encounter for lipid screening for cardiovascular disease THYROID FUNCTION CASCADE Routine 03/24/2024 1:56 PM RADIO STATION MANAGER Annual physical exam Mild episode of recurrent major depressive disorder (HCC) Generalized anxiety disorder Screening for thyroid disorder HEPATITIS C ANTIBODY Routine 03/24/2024 1:56 PM RADIO STATION MANAGER Need for hepatitis C screening test HEPATITIS B SURFACE ANTIGEN Routine 03/24/2024 1:56 PM RADIO STATION MANAGER Need for hepatitis B screening test HEPATITIS B SURFACE ANTIBODY (IMMUNE STATUS) Routine 03/24/2024 1:56 PM RADIO STATION MANAGER Need for hepatitis B screening test HEPATITIS B CORE ANTIBODY, TOTAL Routine 03/24/2024 1:56 PM RADIO STATION MANAGER Need for hepatitis B screening test URINALYSIS, MICROSCOPIC ONLY Routine 03/24/2024 1:52 PM RADIO STATION MANAGER Annual physical exam Screening for blood or protein in urine URINALYSIS AND REFLEX TO MICROSCOPIC AND CULTURE Routine 03/24/2024 1:52 PM RADIO STATION MANAGER Annual physical exam Screening for blood or protein in urine from Last 3 Months Results * eGFR (03/24/2024 1:56 PM RADIO STATION MANAGER) eGFR >90 >=60 mL/min/1. 73 m2 Comment: [...] last reviewed 2021. Blood 03/24/2024 1:56 PM RADIO STATION MANAGER 03/24/2024 2:11 PM RADIO STATION MANAGER Mary Milner DO LAB BLOOD ORDERABLES Final Result [facility] [address] [place] [address] * Differential, auto (03/24/2024 1:56 PM RADIO STATION MANAGER) Pathologist [facility] Neutrophil abs 5.5 1.5 - 6.5 K/cumm Imm gran abs 0.0 0.0 - 0.1 K/cumm [facility] Lymphocyte abs 2.1 0.8 - 3.3 K/cumm [facility] Monocyte abs 0.6 0.2 - 0.8 K/cumm [facility] Eosinophil abs 0.1 0.0 - 0.5 K/cumm [facility] Basophil abs 0.0 0.0 - 0.1 K/cumm [facility] Neutrophil pct 66.5 % [facility] Comment: Interpretive Data Percent cell count reference ranges are not reported, since discordance with absolute values may lead to misinterpretation of CBC data. Current Interpretive Data was last revised on 2017. Imm gran pct 0.2 % [facility] Comment: Interpretive Data Percent cell count reference ranges are not reported, since discordance with absolute values may lead to misinterpretation of CBC data. Current Interpretive Data was last revised on 2017. Lymphocyte pct 25.3 % [facility] Comment: Interpretive Data Percent cell count reference ranges are not reported, since discordance with absolute values may lead to misinterpretation of CBC data. Current Interpretive Data was last revised on 2017. Monocyte pct 6.8 % [facility] Comment: Interpretive Data Percent cell count reference ranges are not reported, since discordance with absolute values may lead to misinterpretation of CBC data. Current Interpretive Data was last revised on 2017. Eosinophil pct 0.8 % [facility] Comment: Interpretive Data Percent cell count reference ranges are not reported, since discordance with absolute values may lead to misinterpretation of CBC data. Current Interpretive Data was last revised on 2017. Basophil pct 0.4 % [facility] Comment: Interpretive Data Percent cell count reference ranges are not reported, since discordance with absolute values may lead to misinterpretation of CBC data. Current Interpretive Data was last revised on 2017. Blood 03/24/2024 1:56 PM RADIO STATION MANAGER 03/24/2024 2:11 PM RADIO STATION MANAGER Mary Milner DO LAB BLOOD ORDERABLES Final Result Performing Organization Address [facility] Co de Phone Number [address] [address] * Thyroid Function [place] (03/24/2024 1:56 PM RADIO STATION MANAGER) [facility] TSH 1.88 0.30 - 4.20 mcIUnit/mL Blood 03/24/2024 1:56 PM RADIO STATION MANAGER 03/24/2024 2:11 PM RADIO STATION MANAGER Mary Milner LAB BLOOD ORDERABLES Final Result Performing Organization Address [facility] de Phone Number [address] [address] * (ABNORMAL) CBC with auto differential (03/24/2024 1:56 PM RADIO STATION MANAGER) [facility] WBC 8.3 3.8 - 9.9 K/cumm Hgb 11.4(L) 11.9 - 15.5 g/dL [facility] Hct 36.3 35.6 - 45.5 % [facility] Plt 414(H) 150 - 400 K/cumm [facility] MPV 10.0 9.1 - 12.3 fL [facility] RBC 4.33 3.90 - 5.20 M/cumm [facility] MCV 83.8 81.3 - 96.4 fL [facility] MCH 26.3(L) 27.1 - 33.3 pg [facility] MCHC 31.4(L) 32.3 - 35.7 g/dL [facility] RDW CV 14.0 11.1 - 14.9 % [facility] RDW SD 42.7 35.7 - 48.1 fL [facility] NRBC abs 0.00 0.00 - 0.01 K/cumm [facility] Blood 03/24/2024 1:56 PM RADIO STATION MANAGER 03/24/2024 2:11 PM RADIO STATION MANAGER Mary Milner DO LAB BLOOD ORDERABLES Final Result Performing Organization Address [facility] Co de Phone Number GIRMA [address] [place] [employer] [place] [place] [address] * Hepatitis C antibody Blood (03/24/2024 1:56 PM RADIO STATION MANAGER) Hep C Ab Nonreactive Nonreactive Comment: Antibodies [...] revised on 2019. Blood 03/24/2024 1:56 PM RADIO STATION MANAGER 03/24/2024 2:11 PM RADIO STATION MANAGER Mary Milner DO LAB MICROBIOLOGY - GENERAL ORDERABLES Final Result Performing Organization Address [facility] Co de Phone Number [facility] [address] [place] [address] [place] [address] * Hepatitis B core antibody, total Blood (03/24/2024 1:56 PM RADIO STATION MANAGER) Hep B core IgG/IgM Nonreactive Nonreactive Comment:Testing performed by : [facility], [address] [facility], [place]., [address] Blood 03/24/2024 1:56 PM RADIO STATION MANAGER 03/24/2024 5:54 PM RADIO STATION MANAGER Mary Milner DO LAB MICROBIOLOGY - GENERAL ORDERABLES Final Result Performing Organization Address [facility] Co de Phone Number DEE[address] [place] [address] [place] [address] * Hepatitis B surface antibody (immune status) Blood (03/24/2024 1:56 PM RADIO STATION MANAGER) HBsAb (immune status) Nonreactive Comment: Interpretive Data [...] revised on 19. Blood 03/24/2024 1:56 PM RADIO STATION MANAGER 03/24/2024 2:11 PM RADIO STATION MANAGER Mary Milner DO LAB MICROBIOLOGY - GENERAL ORDERABLES Final Result Performing Organization Address [facility] Co de Phone Number [address] [place] [address] [place] [address] * Hepatitis B Surface Antigen Blood (03/24/2024 1:56 PM RADIO STATION MANAGER) HepBsAg Nonreactive Nonreactive Blood 03/24/2024 1:56 PM RADIO STATION MANAGER 03/24/2024 2:11 PM RADIO STATION MANAGER us Mary Milner DO LAB MICROBIOLOGY - GENERAL ORDERABLES Final Result [facility] [place] [address] * (ABNORMAL) Hemoglobin A1c (03/24/2024 1:56 PM RADIO STATION MANAGER) Hgb A1C 5.8(H) 4.0 - 5.6 % Estimated Average Glucose 120 mg/dL [facility] Comment: The ADA recommends reporting an estimated Average Glucose (eAG) with all Hemoglobin A1c results using the equation derived from a study of 507 normal and diabetic adults. Minority populations were underrepresented and children were not included. (Diabetes Care 31:1060-1688, 2008). The eAG is not equivalent to a fasting glucose. Blood 03/24/2024 1:56 PM RADIO STATION MANAGER 03/24/2024 2:11 PM RADIO STATION MANAGER us Mary Milner DO LAB BLOOD ORDERABLES Final Result [facility] [address] [place] [address] * (ABNORMAL) Lipid panel (03/24/2024 1:56 PM RADIO STATION MANAGER) Cholesterol 201(H) 30 - 199 mg/dL Comment: [...] 2. NCEP Expert Panel. Circulation 2004;110:227 3. aSy Dorado et al. ISH Cardiol. 2019August 05;5(5):540-548. [...] last revised on 2017. Chol/HDL ratio 4 [facility] Blood 03/24/2024 1:56 PM RADIO STATION MANAGER 03/24/2024 2:11 PM RADIO STATION MANAGER us Mary Milner DO LAB BLOOD ORDERABLES Final Result [facility] [address] [place] [address] * (ABNORMAL) Comprehensive metabolic panel (03/24/2024 1:56 PM RADIO STATION MANAGER) Sodium 137 135 - 145 mmol/L Potassium, pl 3.8 3.3 - 4.9 mmol/L [facility] Chloride 102 97 - 110 mmol/L [facility] CO2 25 22 - 32 mmol/L [facility] Anion gap 10 2 - 15 mmol/L [facility] BUN 8 6 - 25 mg/dL [facility] Creatinine 0.59(L) 0.60 - 1.10 mg/dL [facility] Glucose 97 70 - 199 mg/dL [facility] Comment: Interpretive Data Fasting glucose >/= [...] 2022. Calcium 9.5 8.5 - 10.3 mg/dL [facility] Bilirubin, total 0.2 0.1 - 1.2 mg/dL [facility] Protein, pl 8.0 6.5 - 8.5 g/dL [facility] Albumin 4.3 3.5 - 5.0 g/dL [facility] Alk phos 84 40 - 130 Units/L [facility] ALT 6(L) 7 - 45 Units/L [facility] AST 16 10 - 45 Units/L [facility] Blood 03/24/2024 1:56 PM RADIO STATION MANAGER 03/24/2024 2:11 PM RADIO STATION MANAGER Mary Milner DO LAB BLOOD ORDERABLES Final Result Performing Organization Address [facility] Co de Phone Number GIRMA [address] [address] * (ABNORMAL) Urinalysis reflex to microscopic and culture Urine, clean voided (03/24/2024 1:52 PM RADIO STATION MANAGER) Color, ur Yellow Yellow Clarity, ur Clear Clear [facility] Specific gravity, ur 1.020 1.003 - 1.030 [facility] pH, urine 7.0 [facility] Comment: Interpretive Data U rine pH is affected by diet, medications, systemic acid-base disturbances, and renal tubular function. pH may affect urinary stone formation. For example, urine pH below 6.0 may help reduce the tendency for calcium phosphate stones and pH greater than 6.0 may reduce the tendency for uric acid stone formation. Source: [facility] Current Interpretive Data was last revised on 2017 Protein, ur ql Negative Negative [facility] Glucose, ur ql Negative Negative [facility] Ketones, ur Negative Negative [facility] Bilirubin, ur Negative Negative [facility] Blood, ur 1+(A) Negative [facility] Urobilinogen, ur <2.0 <2.0 mg/dL [facility] Nitrite, ur Negative Negative [facility] Leukocyte esterase, ur Negative Negative [facility] UA reflex comment Reflex to microscopic UA will be performed. [facility] Urine, clean voided 03/24/2024 1:52 PM RADIO STATION MANAGER 03/24/2024 2:09 PM RADIO STATION MANAGER Narrative [facility] - 03/24/2024 2:18 PM RADIO STATION MANAGER Urine Collection Method->Clean Catch Mary Milner DO LAB MICROBIOLOGY - GENERAL ORDERABLES Final Result Performing Organization Address [facility] Co de Phone Number GIRMA [address] [address] * (ABNORMAL) Urinalysis, microscopic only (03/24/2024 1:52 PM RADIO STATION MANAGER) WBC, ur 0-5 0 - 5 /HPF RBC, ur 11-20(A) 0 - 2 /HPF [facility] Epithelial cells, squamous, ur 1-5 0 - 5 /HPF [facility] Mucous, ur Present(A) [facility] Culture Reflex Comment Reflex conditions for urine culture (WBC >10) not met. [facility] Urine, clean voided 03/24/2024 1:52 PM RADIO STATION MANAGER 03/24/2024 2:12 PM RADIO STATION MANAGER us Mary Milner DO LAB URINE ORDERABLES Final Result [facility] [address] [place] [address] from Last 3 Months Insurance [employer] O[employer] Care Teams Stacker Operator Relationship Specialty Start Date End Date Mary Milner DO [address] [facility] [address] [address] PCP - General Family Medicine 03/24/24
[2024-05-15 04:11] LABS: Add Urine Microscopic? YES; Appearance Urine Clear (Clear); Bacteria Urine None Seen /hpf; Bilirubin Urine Negative (Negative); Blood Urine Trace (Negative); Color Urine Yellow (Yellow); Glucose Urine UA Negative (Negative); Ketones Urine Trace mg/dL (Negative); Leukocyte Esterase Ur Negative LEU/UL (Negative); Nitrate Urine Negative (Negative); Non Pathogenic Casts 0-2; Protein Urine 1+ mg/dL (Negative); RBC Urine 21-50 /hpf (0-2); Specific Grav Ur 1.031 (1.001-1.035); Squamous Epithelial Cell Urine None Seen /hpf (Few); WBC Urine 0-5 /hpf (0-3)
[2024-05-15 04:37] LABS: Pregnancy On Board Control Positive; Urine Pregnancy Test Negative
[2024-05-15 04:45] VITALS: BP 130/74; PULSE 100; RESP 19; O2SAT 100
--- NOTE | 2024-05-15 04:47 | ED_ITS ---
HPI - General Adult General Chief complaint: Nausea/Vomiting/Diarrhea Stated complaint: vomiting and diarrhea Time Seen by Provider: 05/15/24 02:45 History of Present Illness HPI narrative: This is a 24-year-old female presenting with nausea vomiting diarrhea. Symptoms started 4:00 p.m. yesterday. Associated symptoms include body aches and headache. No sick contacts at home. No chest pain difficulty breathing abdominal pain or urinary symptoms. Related Data Allergies Allergy/AdvReac Type Severity Reaction Status Date / Time No Known Allergies Allergy Verified 04/28/24 09:24 Exam 2 Narrative: APPEARANCE: No apparent distress. Head: atraumatic. EYES: EOMI, NOSE: Atraumatic NECK: Trachea midline RESPIRATORY: No increased rate of breathing, CTAB CARDIOVASCULAR: RRR, soft nontender no guarding rebound ABDOMINAL: Non-distended soft nontender MUSCULOSKELETAl: No obvious deformities NEURO: Alert. Moving 4/4 extremities SKIN:: Warm, dry. Normal color PSYCHIATRIC: Normal affect Course Vital Signs Vital signs: Vital Signs Temperature 98.8 F 05/15/24 02:10 Pulse Rate 119 H 05/15/24 02:10 Respiratory Rate 20 05/15/24 02:10 Blood Pressure 133/71 05/15/24 02:10 Pulse Oximetry 99 05/15/24 02:10 Oxygen Delivery Room Air 05/15/24 02:10 Temperature 98.8 F 05/15/24 02:10 Pulse Rate 119 H 05/15/24 02:10 Respiratory Rate 20 05/15/24 02:10 Blood Pressure 133/71 05/15/24 02:10 Pulse Oximetry 99 05/15/24 02:10 Oxygen Delivery Room Air 05/15/24 02:10 Medical Decision Making [facility] Narrative Medical decision making narrative: -Course: 24-year-old female presenting with nausea vomiting diarrhea. Given fluid resuscitation antiemetics. Patient is not tolerating p.o.. Physical exam is unremarkable laboratory values within expected limits. COVID a is Patient be discharged with return precautions. -DDX includes but is not limited to: Gastroenteritis, COVID, flu Vital Signs Vital Signs: Vital Signs Temperature 98.8 F 05/15/24 02:10 Pulse Rate 119 H 05/15/24 02:10 Respiratory Rate 20 05/15/24 02:10 Blood Pressure 133/71 05/15/24 02:10 Pulse Oximetry 99 05/15/24 02:10 Oxygen Delivery Room Air 05/15/24 02:10 Temperature 98.8 F 05/15/24 02:10 Pulse Rate 119 H 05/15/24 02:10 Respiratory Rate 20 05/15/24 02:10 Blood Pressure 133/71 05/15/24 02:10 Pulse Oximetry 99 05/15/24 02:10 Oxygen Delivery Room Air 05/15/24 02:10 Lab Data 05/15/24 03:34 05/15/24 03:34 Labs: Lab Results 05/15/24 05/15/24 05/15/24 Range/Units 03:34 04:01 04:51 WBC 13.0 H (4.5-10.0) K/mm3 RBC 4.24 (4.2-5.4) M/mm3 Hgb 11.2 L (12.0-15.0) g/dL Hct 35.1 L (37.0-47.0) % MCV 82.8 (80-100) fl MCH 26.4 (26-34) pg MCHC 31.9 L (32-36) g/dl RDW 14.6 H (11.5-14.5) % Plt Count 335 (150-375) k/mm3 MPV 10.2 (7.4-10.4) fl Immature Gran % (Auto) 0.4 (0-0.5) % Neut % (Auto) 92.6 H (45.5-73.1) % Lymph % (Auto) 2.5 L (18.3-44.2) % [place] % (Auto) 4.2 (2.6-8.5) % Eos % (Auto) 0.1 (0-4.4) % Baso % (Auto) 0.2 (0.2-1.2) % Lymph # (Auto) 0.32 L (0.9-3.2) K/mm3 Foster # (Auto) 0.5 (0.1-0.6) K/mm3 Eos # (Auto) 0.0 (0-0.3) K/mm3 Baso # (Auto) 0.0 (0.0-0.1) K/mm3 Abs Immat Gran (auto) 0.05 H (0.00-0.031) K/mm3 Absolute Neuts (auto) 12.0 H (1.3-6.7) K/mm3 Absolute Nucleated RBC 0.000 (0.0-0.012) K/mm3 Nucleated RBC % 0.0 (0.0-0.2) % Sodium 137 (137-145) mmol/L Potassium 4.3 (3.4-5.0) mmol/L Chloride 103 (98-107) mmol/L Carbon Dioxide 24 (22-30) mmol/L Anion Gap 10 (4-12) mmol/L BUN 13 (7-17) mg/dL Creatinine 0.55 L (0.7-1.0) mg/dL Estim Creat Clear Calc 142 ml/min Estimated GFR > 60 (59 - ) Glucose 115 H (65-110) mg/dL Calcium 9.6 (8.4-10.2) mg/dL Total Bilirubin 0.5 (0.2-1.3) mg/dL AST 22 (14-36) U/L ALT 19 (6-35) U/L Alkaline Phosphatase 85 (38-126) U/L Total Protein 9.0 H (6.3-8.2) g/dL Albumin 4.6 (3.5-5.1) g/dL Lipase 48 (23-300) U/L Urine Color Yellow (Yellow) Urine Appearance Clear (Clear) Urine pH 7.0 (5.0-9.0) Ur Specific [place] 1.031 (1.001-1.035) Urine Protein 1+ H (Negative) mg/dL Urine Glucose (UA) Negative (Negative) mg/dL Urine Ketones Trace H (Negative) mg/dL Ur Blood (Man) Trace (Negative) Urine Nitrate Negative (Negative) Urine Bilirubin Negative (Negative) Urine Urobilinogen 1.0 (<2.0) mg/dL Leukocyte Esterase Rfl Negative (Negative) CHICO/UL Urine RBC 21-50 H (0-2) /hpf Urine WBC 0-5 (0-3) /hpf Ur Squamous Epith Cells None seen (Few) /hpf Urine Bacteria None seen /hpf Urine Casts 0-2 Urine Test Negative Influenza A (RT-PCR) Negative (Negative) Influenza B (RT-PCR) Negative (Negative) RSV (RT-PCR) Negative (Negative) SARS-CoV-2 RNA (RT-PCR) Positive A (Negative) Discharge Plan Discharge Clinical Impression: Gastroenteritis, COVID Patient Disposition: Home, Self-Care Condition: Stable Instructions: Antibiotic Form, Gastroenteritis (ED) Additional Instructions: Using emergency department nausea vomiting diarrhea. Please Zofran for nausea. Make sure you drink fluids. If you develop severe abdominal pain, intractable nausea vomiting, or any new or worsening symptoms please return to the ED for re-evaluation. Patient Language: Beninese Prescriptions: New ondansetron 4 mg tablet,disintegrating 4 mg PO Q8H PRN (Reason: nausea and vomiting) Qty: 30 0RF No Action benzonatate 200 mg capsule 200 mg PO TID PRN (Reason: cough) Qty: 15 0RF Follow-up/Referrals: Alf,Mary Martinez DO [Primary Care Provider] -
[2024-05-15] MEDS: ONDANSETRON INJ 4 MG/2 ML VIAL IV PUSH (05:25)
[2024-05-15] MEDS: SODIUM CHLORIDE 0.9% IV 2,000 ML 999 ML IV CONT (05:25)
[2024-05-15] MEDS: KETOROLAC 15 MG/ML VIAL (*BKC) IV PUSH (05:25)
[2024-05-15 05:32] LABS: Influenza A QL RT-PCR Negative (Negative); Influenza B QL RT-PCR Negative (Negative); RSV RNA, RT-PCR Negative (Negative); SARS-CoV-2 RNA PCR Positive (Negative)
[2024-05-15 06:59] VITALS: BP 129/77; PULSE 93; RESP 15; O2SAT 99
== END 2024-05-15 07:00 | disposition home or self-care (01) ==
PROVIDERS: Emergency Provider Emergency Medicine; PCP Family Medicine
DX: U07.1 COVID-19 (principal); K52.9 Noninfective gastroenteritis and colitis, unspecified
CPT/HCPCS: 36415; 80053; 81001; 81025; 83690; 85025; 87637; 96361; 96374; 96375; 99284; J1885; J2405; J7030

== ENCOUNTER 2024-06-04 17:55 | Emergency (ER) | payer BC, SELFPAY ==
--- NOTE | 2024-06-04 18:00 | ED.URI ---
HPI - URI/Sore Throat General Chief Complaint: Upper Respiratory Infection Stated Complaint: HEADACHE/COUGH/CHEST Time Seen by Provider: 06/04/24 18:00 Source: patient Mode of arrival: ambulatory Limitations: no limitations History of Present Illness HPI Narrative: patient is a 24-year-old female who presents with headache today, nonproductive cough for 2 days along with congestion and sinus pressure. Patient was diagnosed with COVID 2/8. Denies any fever, chills, nausea, vomiting, diarrhea. Related Data Home Medications ?Medication ?Instructions ?Recorded ?Confirmed ?Last Taken ?Type sertraline 100 mg tablet 100 mg PO Q24H 06/04/24 06/04/24 Unknown History Allergies Allergy/AdvReac Type Severity Reaction Status Date / Time No Known Allergies Allergy Verified 06/04/24 18:06 Review of Systems Review of Systems: All systems reviewed & are unremarkable except as noted in HPI and below Constitutional: Constitutional: Denies chills, Denies fatigue, Denies fever(s), Reports headache(s), Denies malaise and Denies weakness Eyes: Eyes: Denies blurry vision, Denies itchy eyes and Denies loss of vision ENT: Denies otalgia, Reports headache(s), Reports nasal congestion, Denies sinus pain, Reports sinus pressure and Denies sore throat Cardiovascular: Cardiovascular: Denies chest pain, Denies irregular heart rhythm and Denies dyspnea Respiratory: Respiratory: Reports cough and Denies dyspnea Gastrointestinal: Gastrointestinal: Denies abdominal pain, Denies diarrhea, Denies nausea and Denies vomiting Musculoskeletal: Musculoskeletal: Denies back pain, Denies myalgias and Denies arthralgias Integumentary/Breasts: Skin/Breast: Denies pruritus and Denies rash Neurologic: Reports headache(s), Denies loss of vision and Denies weakness Psychiatric: Psychiatric: Reports no additional psychiatric complaints Endocrine: Endocrine: Denies fatigue Allergic/Immunologic: Allergic/Immunologic: Denies itchy eyes PMFSH Comments At time of signature, agree with nursing past medical, surgical, social and family history. There is no relevant family history pertinent to the presenting complaint. Exam Const: General: cooperative, healthy appearing, comfortable, no acute distress and well nourished Nutritional Appearance: well nourished Orientation/consciousness: patient oriented x3 Limitations: no limitations HENMT: Head: normal to inspection, normocephalic and atraumatic Ears: hearing grossly normal bilaterally, external ears normal, TM's normal bilaterally, EAC's normal and no periauricular adenopathy Face/Nose/Sinus: Normal external nose present, Abnormal mucous membranes and turbinates present erythematous bilateral and diffuse, normal facial exam, face symmetric and Facial tenderness on exam of face and sinuses Face and sinus: normal facial exam and face symmetric Mouth: Yes Normal oral and palatal mucosa present, Yes lip normal, Yes tongue normal, Yes Normal salivary glands and ducts present, Yes oropharynx normal and Yes moist mucous membranes Teeth and gingiva: dentition normal Throat: posterior oropharynx normal, tonsils normal and uvula midline Eyes: General: appearance normal, both eyes and all related structures Alignment and Position: alignment normal and position normal Periorbital: periorbital findings normal Eyelids: eyelids normal Pupils: Equal, round and reactive pupils present Neck: Neck: normal visual inspection, full ROM, no lymphadenopathy and supple Chest: Chest palpation & inspection: normal inspection of the chest and normal palpation of entire chest wall Resp: Effort & Inspection: normal respiratory effort and able to speak in complete sentences Auscultation: clear to auscultation bilaterally, no crackles, no rales, no rhonchi and no wheezes Cardio: Rate: tachycardic Rhythm: regular rhythm Heart sounds: S1 normal heart sound present and S2 normal heart sound present GI: Inspection: normal to inspection Skin: General skin exam: normal color and no rashes or lesions noted Neuro: General: patient oriented x3 and moves all extremities Cranial nerves: Yes Equal, round and reactive pupils present Speech: normal speech Gait exam (Neuro): Normal gait present Extrem: General: normal to inspection, full ROM and no edema Psych: Appearance: grossly normal and well kempt Mental Status: mental status grossly normal Speech and movement: Normal speech and movement present Affect: normal affect Attitude: cooperative Thought process: Normal thought process present Course Course Emergency Course: Discharge instructions reviewed with patient, as well as provided in writing per nursing staff. The instructions also include specific and strict return/GO TO THE ER as well as f/u information. All questions have been answered, and the patient deny any further questions with discharge and discharge plan. Portions of this record may have been created with voice recognition software Level of Care: Express Care Visit Vital Signs Vital signs: Vital Signs Temperature 37.3 C 06/04/24 18:08 Pulse Rate 120 H 06/04/24 18:08 Respiratory Rate 16 06/04/24 18:08 Blood Pressure 115/73 06/04/24 18:08 Pulse Oximetry 100 06/04/24 18:08 Temperature 37.3 C 06/04/24 18:08 Pulse Rate 120 H 06/04/24 18:08 Respiratory Rate 16 06/04/24 18:08 Blood Pressure 115/73 06/04/24 18:08 Pulse Oximetry 100 06/04/24 18:08 Reviewed MDM - URI/Sore Throat MDM Narrative Medical decision making narrative: Pt well hydrated appearing, in no respiratory distress, hemodynamically stable. Recommend supportive care. The patient is stable at time of discharge the clinical impression was discussed and the patient was given the opportunity to ask questions, which were addressed as completely as possible given the information available at present. Anticipatory guidance and return to care precautions were discussed and the importance of primary care follow-up was stressed and encouraged. The patient voiced understanding of the plan, indications to return, and the need for follow-up. Differential diagnosis considered: Bronchitis, Kidd virus, strep pharyngitis, allergic rhinitis, upper respiratory tract infection, sinusitis, rhinosinusitis, nasopharyngitis. viral pharyngitis, otitis media, otitis externa, otitis effusion, foreign body, cerumen impaction, viral syndrome, and influenza.? Exam findings show no acute concerns or changes; patient is non-toxic appearing and is in no distress.? Patient is appropriate for outpatient treatment and follow-up.? Medical Records Attestation: I reviewed the patient's medical records. Discharge Plan Discharge Clinical Impression: Sinusitis Qualifiers: Sinusitis location: frontal Chronicity: acute Recurrence: non-recurrent Qualified Code(s): J01.10 - Acute frontal sinusitis, unspecified Patient Disposition: Home, Self-Care Condition: Stable Instructions: Sinusitis (ED) Additional Instructions: Symptomatic treatment of a sinus infection aims to relieve symptoms. These treatments do not shorten the duration of illness. Nonprescription pain medications, such as acetaminophen (eg, Tylenol) or ibuprofen (eg, Motrin, Advil), are recommended for pain. Flushing the nose and sinuses with a saline solution several times per day has been proven to decrease pain associated with congestion and shorten the duration of symptoms. Nasal steroids (such as Flonase, 2 sprays in each nostril daily) can help to reduce swelling inside the nose, usually within two to three days. These drugs have few side effects and relieve symptoms in most people. Oral decongestants (pseudoephedrine and phenylephrine) may be helpful if you have associated symptoms of ear pain or fullness. Nasal decongestant sprays, including oxymetazoline (Afrin) and phenylephrine (Justen-Synephrine), can be used to temporarily treat congestion. However, these sprays should not be used for more than two to three days due to the risk of rebound congestion (when the nose becomes congested constantly unless the medication is used repeatedly), possible addiction, and long-term consequences of frequent use, including persistent nasal dryness and crusting, which is very difficult to treat once it has developed. Medications to thin secretions (such as guaifenesin) may help to clear mucus. Please follow-up with your primary care doctor in the next 1-2 days. If you cannot follow-up with your primary care doctor please go to the ED for any urgent issues. If you have any worsening of symptoms or any other concerns please go to the ED immediately. Patient Language: Ethiopian Prescriptions: New fluticasone propionate [Flonase Allergy Relief] 50 mcg/actuation spray,suspension 1 spray intranasal DAILY Qty: 16 0RF Rx Instructions: administer into each nostril amoxicillin-pot clavulanate 875-125 mg tablet 1 tablet PO Q12H 10 Days Qty: 20 0RF No Action sertraline 100 mg tablet 100 mg PO Q24H benzonatate 200 mg capsule 200 mg PO TID PRN (Reason: cough) Qty: 15 0RF ondansetron 4 mg tablet,disintegrating 4 mg PO Q8H PRN (Reason: nausea and vomiting) Qty: 30 0RF Follow-up/Referrals: Alf,Mary [Other] - 3 Days Stand Alone Forms: Work/School Release IP Time of Disposition: 18:45
[2024-06-04 18:08] VITALS: BP 115/73; PULSE 120; RESP 16; TEMP 37.3; O2SAT 100
== END 2024-06-04 18:48 | disposition home or self-care (01) ==
PROVIDERS: Emergency Provider Nurse Practitioner Family
DX: J01.10 Acute frontal sinusitis, unspecified (principal)
CPT/HCPCS: 99213; G0463